=== PATIENT | female | born 2000 | race Caucasian/White ===

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

== ENCOUNTER 2022-01-28 10:31 | Emergency (ER) | payer OTHER, SELFPAY ==
--- NOTE | ~2022-01-28 | XR_ITS ---
EXAMINATION: XR foot LT min 3V DATE: 01/28/2022 11:31 INDICATION: Possible foreign body TECHNIQUE: Dorsoplantar, lateral, and 2 oblique views of the left foot were obtained. COMPARISON: None. FINDINGS: Bone alignment is normal. There is no fracture. The joint spaces are normal. No definite ra diopaque foreign body is identified. IMPRESSION: 1. No acute osseous abnormality. No definite radiopaque foreign body identified. Reviewed, dictated and finalized at location B. IMPRESSION: 1. No acute osseous abnormality. No definite radiopaque foreign body identified .
[2022-01-28 10:37] VITALS: BP 149/100; PULSE 97; RESP 14; TEMP 36.1; O2SAT 99
--- NOTE | 2022-01-28 11:55 | ED.SKABFB ---
HPI - Skin/Abscess/Foreign Bdy General Chief complaint: Skin/Abscess/Foreign Body <Saadia Quintero PA-C - Last Filed: 01/28/22 11:59> Stated complaint: left foot FB <Saadia Quintero PA-C - Last Filed: 01/28/22 11:59> Time Seen by Provider: 01/28/22 11:09 <JOSE JUAN Fitzgerald Last Filed: 01/28/22 11:59> History of Present Illness HPI narrative: Patient is a 21-year-old female here for evaluation of a foreign body to the plantar surface of her left foot. 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 She states that the piece of glass remained in the foot and she was told to come to the emergency department to have this removed as the staff at the restaurant did not feel comfortable removing it. At time of my evaluation, patient has her shoe off, with a piece of glass sticking up in the sole of the shoe but no foreign body in foot. Her last tetanus shot was 3 months ago. She has been walking on the foot without issue. <JOSE JUAN Fiztgerald Last Filed: 01/28/22 11:59> Related Data Allergies/Adverse reactions: Allergies Allergy/AdvReac Type Severity Reaction Status Date / Time No Known Allergies Allergy Verified 11/20/19 21:41 <JOSE JUAN Fitzgerald Last Filed: 01/28/22 11:59> Review of Systems Review of Systems: Gen.: Denies fevers or chills Eyes: Denies eye pain or visual change ENT: Denies congestion Respiratory: Denies shortness of breath or cough CV: Denies chest pain or palpitations GI: Denies abdominal pain nausea, emesis or diarrhea denies burning, urgency, frequency or hematuria Musculoskeletal: Denies back pain or muscle pain Neuro: Denies numbness, tingling, weakness or focal weakness Skin: Reports left foot puncture wound Except as documented, all other systems reviewed and negative <JOSE JUAN Fitzgerald Last Filed: 01/28/22 11:59> [facility] Past Medical History Medical History: Medical History (Updated 01/29/22 @ 00:00 by Background Daceasar) Migraine <Saadia Quintero PA-C - Last Filed: 01/28/22 11:59> Exam Narrative: Gen: Alert, oriented, no acute distress Eyes: EOMI, no icterus Pulm: Respirations even and unlabored, symmetric thorax expansion, no audible stridor or visible cyanosis CV: 2+ DP and PT pulses bilaterally. GI: No distension, no voluntary/involuntary guarding Neuro: AOx4, moves all extremities without apparent difficulty or weakness, follows commands MSK: Full range of motion in bilateral feet and toes. Skin: Patient has a pinpoint puncture wound to the plantar aspect of the left foot overlying the third metatarsal head; no active bleeding Psych: Normal mood/affect, insight/judgement good, adequate fund of knowledge, recent/remote memory intact <Saadia Quintero PA-C - Last Filed: 01/28/22 11:59> Course OFFICE SUPPORT CLERK/PA Physician Supervision For this patient encounter, I reviewed the OFFICE SUPPORT CLERK or PA documentation, treatment plan, and medical decision making <August Singh MD - Last Filed: 01/29/22 07:16> Vital Signs Vital signs: Vital Signs Temperature 97.0 F L 01/28/22 10:37 Pulse Rate 97 01/28/22 10:37 Respiratory Rate 14 01/28/22 10:37 Blood Pressure 149/100 H 01/28/22 10:37 Pulse Oximetry 99 01/28/22 10:37 Oxygen Delivery Room Air 01/28/22 10:37 Temperature 97.0 F L 01/28/22 10:37 Pulse Rate 97 01/28/22 10:37 Respiratory Rate 14 01/28/22 10:37 Blood Pressure 149/100 H 01/28/22 10:37 Pulse Oximetry 99 01/28/22 10:37 Oxygen Delivery Room Air 01/28/22 10:37 <Saadia Quintero PA-C - Last Filed: 01/28/22 11:59> Vital Signs Temperature 97.0 F L 01/28/22 10:37 Pulse Rate 97 01/28/22 10:37 Respiratory Rate 14 01/28/22 10:37 Blood Pressure 149/100 H 01/28/22 10:37 Pulse Oximetry 99 01/28/22 10:37 Oxygen Delivery Room Air 01/28/22 10:37 Temperature 97.0 F L 01/28/22
== END 2022-01-28 12:02 | disposition home or self-care (01) ==
PROVIDERS: Emergency Provider Emergency Medicine
DX: S91.332A Puncture wound without foreign body, left foot, initial encounter (principal); W25.XXXA Contact with sharp glass, initial encounter; Y92.511 Restaurant or cafe as the place of occurrence of the external cause; Y99.0 Civilian activity done for income or pay
CPT/HCPCS: 73630; 99283

== ENCOUNTER 2022-09-08 12:13 | Emergency (ER) | payer OTHER, SELFPAY ==
--- NOTE | ~2022-09-08 | XR_ITS ---
Clinical Indication: Chest pain PA and lateral views of the chest: Comparison: None Findings: The lungs are clear, without evidence of focal consolidation or pleural effusion. Cardiome diastinal silhouette is within normal limits. Bones and soft tissues are unremarkable. Impression: Normal chest. Reviewed, dictated and finalized at location . Impression: Normal chest.
[2022-09-08 12:21] VITALS: BP 162/99; PULSE 99; RESP 16; TEMP 36.8; O2SAT 100
--- NOTE | 2022-09-08 12:33 | PC.NURSE ---
States she has just started taking lisinopril about a month prior.
--- NOTE | 2022-09-08 12:47 | ED.GENADULT ---
HPI - General Adult General Chief complaint: Recheck/Abnormal Lab/Rx Stated complaint: high bp Time Seen by Provider: 09/08/22 12:16 History of Present Illness HPI narrative: Patient is 22 years old white female drove herself to the emergency room complaining of right jaw pain started 2 days ago. Worse with opening mouth, better if she does not open her mouth. She denies any fever, chills, nausea, vomiting, chest pain, shortness of breath, back pain, neck pain, trouble swallowing or breathing. She denies having similar symptoms. History of hypertension, new diagnosis 3 months ago, currently on lisinopril. Related Data Allergies Allergy/AdvReac Type Severity Reaction Status Date / Time No Known Allergies Allergy Verified 11/20/19 21:41 Review of Systems Review of Systems: All systems reviewed & are unremarkable except as noted in HPI and below PMFSH Past Medical History Medical History (Updated 09/08/22 @ 14:32 by Clau Marquez MD) Migraine Exam Narrative: General appearance: Well-developed, well-nourished Skin: Normal color Head: Normocephalic, nontraumatic Eyes: Clear conjunctiva ENT: Oropharynx normal, ears normal, nose normal, mild to moderate tenderness right temporomandibular joint with pressure externally, worse with opening and moving her lower jaw to either direction. No bruises, no swelling, no erythema, oral exam showed no dental abnormalities, no swelling or abscess formation. Neck: Supple, nontender Chest and respiratory: Airway patent, no respiratory distress, no accessory muscle use Heart: Regular rate/rhythm Vascular: Normal peripheral pulses, normal capillary refill. Musculoskeletal: Normal range of motion, nontender back Neurologic: Alert and oriented ?3, RESEARCH LEADER is normal as tested, no gross motor deficit Course Course Emergency Course: Improving Reevaluation(s) Reevaluation #1: Currently patient feeling much better after having ibuprofen and Tylenol orally. Date: 09/08/22 Time: 14:12 Vital Signs Vital signs: Vital Signs Temperature 36.8 C 09/08/22 12:21 Pulse Rate 99 09/08/22 12:21 Respiratory Rate 16 09/08/22 12:21 Blood Pressure 162/99 H 09/08/22 12:21 Pulse Oximetry 100 09/08/22 12:21 Oxygen Delivery Room Air 09/08/22 12:21 Temperature 36.8 C 09/08/22 12:21 Pulse Rate 99 09/08/22 12:21 Respiratory Rate 16 09/08/22 12:21 Blood Pressure 162/99 H 09/08/22 12:21 Pulse Oximetry 100 09/08/22 12:21 Oxygen Delivery Room Air 09/08/22 12:21 Medical Decision Making MDM Narrative Medical decision making narrative: Patient presents with right jaw pain, physical examination showed diffuse tenderness at the right temporomandibular joint area, TMJ is my concern. Worse with opening her mouth and moving the jaw to either direction. Patient received Tylenol and ibuprofen in the ER with good improvement. EKG on arrival showed normal sinus rhythm at 88 bpm, no acute abnormality. Chest x-ray showed normal chest. I plan to discharge patient on naproxen and follow-up with her family physician in 3 to 5 days. Differential Diagnosis Differential Diagnosis: TMJ, dental infection. Vital Signs Vital Signs: Vital Signs Temperature 36.8 C 09/08/22 12:21 Pulse Rate 99 09/08/22 12:21 Respiratory Rate 16 09/08/22 12:21 Blood Pressure 162/99 H 09/08/22 12:21 Pulse Oximetry 100 09/08/22 12:21 Oxygen Delivery Room Air 09/08/22 12:21 Temperature 36.8 C 09/08/22 12:21 Pulse Rate 99 09/08/22 12:21 Respiratory Rate 16 09/08/22 12:21 Blood Pressure 162/99 H 09/08/22 12:21 Pulse Oximetry 100 09/08/22 12:21 Oxygen Delivery Room Air 09/08/22 12:21
[2022-09-08] MEDS: ACETAMINOPHEN 500 MG TABLET 1000 MG PO (12:55)
--- NOTE | 2022-09-08 13:42 | ECG_ITS ---
Measurements Intervals [place] Rate: 88 P: 38 LA: 157 QRS: 41 QRSD: 80 T: 12 QT: 352 QTc: 426 Interpretive Statements SINUS RHYTHM NORMAL ELECTROCARDIOGRAM NO PREVIOUS ECG AVAILABLE FOR COMPARISON Electronically Signed On 09-09-2022 6:55:43 CDT by Jose Gibson M.D.
[2022-09-08 14:27] LABS: Basophils Percent Auto 0.5 % (0.2-1.2); Eosinophils Absolute Auto 0.1 K/mm3 (0-0.3); Eosinophils Percent Auto 1.4 % (0-4.4); Hematocrit 41.9 % (37.0-47.0); Hemoglobin 14.3 g/dL (12.0-15.0); Immature Granulocyte Absolute 0.01 K/mm3 (0.00-0.031); Immature Granulocyte Percent A 0.1 % (0-0.5); Lymphocytes Absolute Auto 2.29 K/mm3 (0.9-3.2); Lymphocytes Percent Auto 28.7 % (18.3-44.2); Mean Corpuscular HGB Conc 34.1 g/dl (32-36); Mean Corpuscular Hemoglobin 28.7 pg (26-34); Mean Corpuscular Volume 84.1 fl (80-100); Mean Platelet Volume 10.1 fl (7.4-10.4); Monocytes Absolute Auto 0.5 K/mm3 (0.1-0.6); Monocytes Percent Auto 6.8 % (2.6-8.5); Neutrophils Percent Auto 62.5 % (45.5-73.1); Platelet Count Result 293 k/mm3 (150-375); Red Blood Count 4.98 M/mm3 (4.2-5.4); Red Cell Distribution Width 12.6 % (11.5-14.5)
[2022-09-08 14:34] LABS: Anion Gap 8 mmol/L (8-16); Blood Urea Nitrogen 14 mg/dL (7-17); CRP 0.5 mg/dL (<1.0); Calcium 9.2 mg/dL (8.4-10.2); Carbon Dioxide 26 mmol/L (22-30); Chloride 104 mmol/L (98-107); Estimated CRCL calculation 125 ml/min; Estimated Glomerular Filt Rate > 60; Glucose 87 mg/dL (65-110); Sodium 138 mmol/L (137-145)
[2022-09-08 14:43] LABS: Troponin I < 0.012 ng/mL (0.000-0.034)
[2022-09-08 14:53] VITALS: BP 152/105; PULSE 77; RESP 20; O2SAT 100
[2022-09-08 14:58] LABS: Erythrocyte Sedimentation Rate 9 mm/hr (0-20)
== END 2022-09-08 15:08 | disposition home or self-care (01) ==
PROVIDERS: Emergency Provider Emergency Medicine
DX: M26.601 Right temporomandibular joint disorder, unspecified (principal)
CPT/HCPCS: 36415; 71046; 80048; 84484; 85025; 85652; 86140; 93005; 99284; A9270

== ENCOUNTER 2023-02-11 19:20 | Emergency (ER) | payer BC, SELFPAY ==
[2023-02-11 19:21] VITALS: BP 162/130; PULSE 98; RESP 20; TEMP 37.1; O2SAT 98
[2023-02-11] MEDS: KETOROLAC (*BKC) 60 MG/2 ML VIAL IM (20:01)
[2023-02-11] MEDS: PROMETHAZINE HCL 25 MG TABLET 50 MG PO (20:01)
[2023-02-11] MEDS: hydroCHLOROthiazide 25 MG TABLET PO (20:01)
--- NOTE | 2023-02-11 20:16 | ED.GENADULT ---
HPI - General Adult General Chief complaint: Headache Stated complaint: Migraine History of Present Illness HPI narrative: 22yo woman with hypertension and h/o migraines presents with severe headache with peripheral blurry vision, intermittent spots in her field of vision, no numbness or weakness. Onset yesterday morning. Symptoms consistent with prior migraine. BP high. Is seeing primary care about this. Working on weight loss, considering daily medication. Related Data Allergies Allergy/AdvReac Type Severity Reaction Status Date / Time No Known Allergies Allergy Verified 11/20/19 21:41 Review of Systems Review of Systems: All systems reviewed & are unremarkable except as noted in HPI and below Constitutional: Constitutional: Denies chills and Denies fever(s) ENT: Denies dysphagia Cardiovascular: Cardiovascular: Denies chest pain Respiratory: Respiratory: Denies dyspnea Gastrointestinal: Gastrointestinal: Denies abdominal pain Neurologic: Denies numbness and Denies weakness PMFSH Past Medical History Medical History (Updated 02/11/23 @ 20:20 by Paulino Balbuena MD) Migraine Exam Const: General: healthy appearing and no acute distress Nutritional Appearance: well nourished Eyes: Conjunctivae: conjunctivae normal Resp: Effort & Inspection: normal respiratory effort and not labored Cardio: Rate: regular rate GI: Inspection: non-distended Skin: General skin exam: normal color, no jaundice and no pallor Neuro: General: patient oriented x3 and moves all extremities Gait exam (Neuro): Normal gait present Extrem: General: no clubbing, cyanosis or edema Course Vital Signs Vital signs: Vital Signs Temperature 37.1 C 02/11/23 19:21 Pulse Rate 98 02/11/23 19:21 Respiratory Rate 02/11/23 19:21 Blood Pressure 162/130 H 02/11/23 19:21 Pulse Oximetry 98 02/11/23 19:21 Oxygen Delivery Room Air 02/11/23 19:21 Temperature 37.1 C 02/11/23 19:21 Pulse Rate 98 02/11/23 19:21 Respiratory Rate 02/11/23 19:21 Blood Pressure 162/130 H 02/11/23 19:21 Pulse Oximetry 98 02/11/23 19:21 Oxygen Delivery Room Air 02/11/23 19:21 Medical Decision Making MDM Narrative Medical decision making narrative: acute headache DDx migraine, tension headache, idiopathic intracranial hypertension. No evidence of CVA or hemorrhage or mass Vital Signs Vital Signs: Vital Signs Temperature 37.1 C 02/11/23 19:21 Pulse Rate 98 02/11/23 19:21 Respiratory Rate 02/11/23 19:21 Blood Pressure 162/130 H 02/11/23 19:21 Pulse Oximetry 98 02/11/23 19:21 Oxygen Delivery Room Air 02/11/23 19:21 Temperature 37.1 C 02/11/23 19:21 Pulse Rate 98 02/11/23 19:21 Respiratory Rate 02/11/23 19:21 Blood Pressure 162/130 H 02/11/23 19:21 Pulse Oximetry 98 02/11/23 19:21 Oxygen Delivery Room Air 02/11/23 19:21 Discharge Plan Discharge Clinical Impression: Acute onset aura migraine Qualifiers: Status migrainosus presence: with status migrainosus Intractability: not intractable Qualified Code(s): G43.101 - Migraine with aura, not intractable, with status migrainosus Patient Disposition: Home, Self-Care Condition: Improved Instructions: Migraine Headache (ED) Additional Instructions: For headache pain in the future, take the prescribed medication Fioricet in addition to your other headache meds. Taking them earlier on in the headache episode gives a higher chance of success. To help prevent future headaches, it may be helpful to lower your blood pressure. Talk to your doctor about starting a once daily medication to lower the blood pressure. Also increase your walking to 2 miles per day, which will help reduce body weight and lower blood pressure. It would also be helpful to decrease your intake of very calorie dense foods, such as fried foods, fast food, candy, soda, or other liquid calories. Any decrease in weigh
[2023-02-11 20:40] VITALS: BP 161/111; PULSE 98; RESP 18; TEMP 37.1; O2SAT 98
== END 2023-02-11 20:42 | disposition home or self-care (01) ==
PROVIDERS: Emergency Provider Emergency Medicine
DX: G43.101 Migraine with aura, not intractable, with status migrainosus (principal); I10 Essential (primary) hypertension
CPT/HCPCS: 96372; 99284; A9270; J1100; J1885

== ENCOUNTER 2023-09-09 08:29 | Emergency (ER) | payer OTHER, BC, SELFPAY ==
[2023-09-09 08:35] VITALS: BP 152/99; PULSE 96; RESP 18; TEMP 36.1; O2SAT 99
--- NOTE | 2023-09-09 08:41 | ED.BURNSMOKE ---
HPI - Burn/Smoke Inhalation General Chief complaint: Burn/Smoke Inhalation Stated complaint: burn to right hand Time Seen by Provider: 09/09/23 08:35 History of Present Illness HPI Narrative: 23-year-old female presenting to the emergency department for evaluation of a burn to her thenar eminence. Patient was cooking with grease at work when the grease splashed up and burned her hand. Patient has no montano to some fingers. Patient's tetanus is up-to-date. Related Data Allergies Allergy/AdvReac Type Severity Reaction Status Date / Time No Known Allergies Allergy Verified 09/09/23 08:39 Review of Systems Review of Systems: All systems reviewed & are unremarkable except as noted in HPI and below PMFSH Past Medical History Medical History (Updated 09/09/23 @ 08:45 by August Singh MD) Migraine Exam Narrative: APPEARANCE: Well appearing, no pain, no distress, well-nourished. HEAD: normocephalic, atraumatic. EYES: PERRLA/EOMI, conjunctivae clear. NOSE: Normal no drainage RESPIRATORY: Airway patent, respirations nonlabored. Clear to auscultation bilaterally, no rales, rhonchi, wheezing. CARDIOVASCULAR: Regular rate and rhythm without murmurs rubs or gallops. ABDOMINAL: Soft, nontender, nondistended, normal bowel sounds MUSCULOSKELETAL: Moves all extremities. Strength/ROM intact, No edema, No calf tenderness. NEURO: Alert. Cranial nerves II through XII intact. Good gait. Good coordination SKIN: 1st and second-degree burn located the thenar eminence of the right hand. Intact to sensation and no montano that are circumferential of thumb or fingers Course Vital Signs Vital signs: Vital Signs Temperature 97.0 F L 09/09/23 08:35 Pulse Rate 96 09/09/23 08:35 Respiratory Rate 18 09/09/23 08:35 Blood Pressure 152/99 H 09/09/23 08:35 Pulse Oximetry 99 09/09/23 08:35 Oxygen Delivery Room Air 09/09/23 08:35 Temperature 97.0 F L 09/09/23 08:35 Pulse Rate 96 09/09/23 08:35 Respiratory Rate 18 09/09/23 08:35 Blood Pressure 152/99 H 09/09/23 08:35 Pulse Oximetry 99 09/09/23 08:35 Oxygen Delivery Room Air 09/09/23 08:35 MDM - Burn/Smoke Inhalation MDM Narrative Medical decision making narrative: 23-year-old female presents emergency department for evaluation for burn to the right hand. Patient's tetanus is up-to-date. Antibiotic ointment and dressing was applied. Patient was educated on wound care. Patient was comfortable with plan for discharge and close follow-up. Discharge Plan Discharge Clinical Impression: Burn of skin due to hot oil Patient Disposition: Home, Self-Care Condition: Stable Instructions: Antibiotic Form, Second-Degree Burn (ED) Additional Instructions: Wound care as directed. Have close follow-up with your primary care physician. Prescriptions: New hydrocodone-acetaminophen 5-325 mg tablet 1 tablet PO Q8H PRN (Reason: pain) Qty: 10 0RF Follow-up/Referrals: PHYSICIAN NOT ON STAFF,NONSTAFF [Non-Staff] - Stand Alone Forms: Work/School Release IP
== END 2023-09-09 09:15 | disposition home or self-care (01) ==
LOC: ANHED 08:48
PROVIDERS: Emergency Provider Emergency Medicine
DX: T23.251A Burn of second degree of right palm, initial encounter (principal); T31.0 Burns involving less than 10% of body surface; X10.2XXA Contact with fats and cooking oils, initial encounter; Y93.G3 Activity, cooking and baking
CPT/HCPCS: 16000; 99283

== ENCOUNTER 2024-05-30 13:47 | Emergency (ER) | payer SELFPAY ==
[2024-05-30] VITALS (12 sets, daily range): BP systolic 140–169; BP diastolic 90–110; PULSE 92–108; RESP 18; TEMP 36.3; O2SAT 94–100
--- NOTE | ~2024-05-30 | CT_ITS ---
CLINICAL INDICATION: Epigastric pain COMPARISON: None. TECHNIQUE: Multiple contiguous axial images of the abdomen and pelvis were performed following the ad ministration of with 100 mL Omnipaque-350 intravenous contrast The dose-length product (DLP) was 1234.15 mGy-cm. Automated exposure control and iterative reconstruction technique were employed. FINDINGS/OBSERVATIONS: Visualized lower thorax: The bilateral lung bases are clear. The heart is of normal size, without pericardial effusion. Small hiatal hernia is present. Liver: The liver enhances homogeneously and is not enlarged measuring 17 cm in longitudinal dimension . Gallbladder and biliary system: The gallbladder is only minimally distended, and otherwise unremarkable. Pancreas: The pancreas enhances homogeneously without ductal dilatation. Spleen: The spleen enhances homogeneously and is enlarged measuring 13 cm in longitudinal dimension. Kidneys: The bilateral kidneys enhance symmetrically without hydronephrosis or renal calculi. Adrenal glands: Unremarkable. Gastrointestinal tract: Infiltration of the fat surrounding the small hiatal hernia is identified, which extends into the ret rogastric position, surrounded by multiple enlarged lymph nodes for which proximal gastroenteritis ve rsus distal esophagitis is suspected. The paraesophageal and retrogastric lymph nodes measure anywhere between 9.3 mm in short axis dimensi on up to 12mm in short axis dimension. Fecal stasis within the rectum. Appendix: The appendix is not definitively visualized. However, no pericecal inflammatory change is identified suggest the presence of acute appendicitis. Vasculature: Unremarkable. No aneurysmal dilatation, congenital abnormality or significant stenosis. Lymph nodes: As detailed above. Pelvic structures: The bladder is decompressed, and otherwise unremarkable. Uterus is anteverted and anteflexed. Body wall and musculoskeletal: Small fat-containing umbilical hernia. No significant degenerative disease within the lower thoracic or lumbosacral spine. IMPRESSION: Findings (as detailed above) for which proximal gastroenteritis versus distal esophagitis is suspecte d. Splenic enlargement. Reviewed, dictated and finalized at location A. ROOM SUPERVISOR IMPRESSION: Findings (as detailed above) for which proximal gastroenteritis versus distal e sophagitis is suspected. Splenic enlargement.
--- NOTE | ~2024-05-30 | XR_ITS ---
EXAMINATION: XR chest 2V 05/30/2024 14:22 INDICATION: Epigastric pain for 3 days PROCEDURE: 2 view chest COMPARISON: 09/08/2022 FINDINGS: The lungs are clear. The cardiomediastinal silhouette is within normal limits. There are no pleural effusions. There is no pneumothorax suspected. IMPRESSION: 1: NO ACUTE CARDIOPULMONARY DISEASE. Reviewed, dictated and finalized at location B. GATE KEEPER
--- NOTE | 2024-05-30 13:54 | ECG_ITS ---
Test Date: 2024-05-30 14:07:26 Measurements Intervals [place] Rate: 102 P: 43 [place]: 149 QRS: 67 QRSD: 88 T: 33 QT: 328 QTc: 429 Interpretive Statements SINUS TACHYCARDIA NONSPECIFIC T-WAVE ABNORMALITY No previous ECG available for comparison Electronically Signed On 05-31-2024 17:43:54 OUTSOLE ROUNDER by Osvaldo Correa M.D.
--- NOTE | 2024-05-30 14:30 | ED.ABDPAIN ---
HPI - Abdominal Pain General Chief Complaint: Abdominal Pain Stated Complaint: chest pain Time Seen by Provider: 05/30/24 13:54 Source: patient Mode of arrival: ambulatory Limitations: no limitations History of Present Illness HPI narrative: 23 years old white female came to the ED with her boyfriend by private car complaining of epigastric, retrosternal heaviness like elephant sitting on chest started 3 days ago, intermittent. It radiating to her back. Worse with breathing, History of hypertension used to be on losartan, unknown dose, quit 3 months ago because does Insurance issues. History of anxiety and depression. Patient denies any fever, chills, nausea, vomiting, diarrhea, constipation. Patient does not smoke or drink or use drugs. . No history of abdominal surgery Related Data Allergies Allergy/AdvReac Type Severity Reaction Status Date / Time No Known Allergies Allergy Verified 05/30/24 13:57 Review of Systems Review of Systems: All systems reviewed & are unremarkable except as noted in HPI and below PMFSH Past Medical History Medical History (Updated 05/30/24 @ 16:46 by Clau Marquez MD) Migraine Exam Narrative: General appearance: Well-developed, well-nourished Skin: Normal color Head: Normocephalic, nontraumatic Eyes: Clear conjunctiva ENT: Oropharynx normal, ears normal, nose normal Neck: Supple, nontender Chest and respiratory: Airway patent, no respiratory distress, no accessory muscle use Heart: Regular rate/rhythm Abdomen: Soft, moderate epigastric tenderness, no organomegaly, quiet bowel sounds Vascular: Normal peripheral pulses, normal capillary refill. Musculoskeletal: Normal range of motion, nontender back Neurologic: Alert and oriented ?3, [employer] WORKER is normal as tested, no gross motor deficit Course Vital Signs Vital signs: Vital Signs Temperature 36.3 C L 05/30/24 13:47 Pulse Rate 108 H 05/30/24 13:47 Respiratory Rate 18 05/30/24 13:47 Blood Pressure 155/109 H 05/30/24 13:47 Pulse Oximetry 98 05/30/24 13:47 Oxygen Delivery Room Air 05/30/24 13:47 Temperature 36.3 C L 05/30/24 13:47 Pulse Rate 108 H 05/30/24 13:47 Respiratory Rate 18 05/30/24 13:47 Blood Pressure 157/105 H 05/30/24 15:16 Pulse Oximetry 94 05/30/24 15:16 Oxygen Delivery Room Air 05/30/24 13:47 MDM - Abdominal Pain MDM Narrative Medical decision making narrative: patient came with epigastric pain and retrosternal pain, stop taking her blood pressure medication over 3 months because of insurance issues Vital signs showing blood pressure 155/109, heart rate 108 otherwise within normal limit Patient is 118 kilos Physical examination consistent with epigastric tenderness at the sternal tenderness without rash or swelling Differential diagnosis include pancreatitis, gastritis, esophagitis, less likely coronary artery disease, pulmonary embolism, stress like symptoms Blood workup today includes CBC, CMP, troponin, lipase showedNo significant abnormalities Urinalysis showed evidence of urinary tract infection Chest x-ray showed no acute abnormalities CT abdomen and pelvis with IV contrast showed finding consistent was esophagitis, gastritis. Patient will be discharged on Protonix, Macrobid and losartan. The pt was discharged to home.the pt,s condition upon discharge was fair,education was provided to the pt in reference to the final impression,discharge study results,treatment,prognosis and need for follow up . Lab Data 05/30/24 14:54 05/30/24 14:54 Labs: Lab Results 05/30/24 05/30/24 Range/Units 14:54 15:35 WBC 9.7 (4.8-10.8) K/mm3 RBC 5.21 (4.20-5.40) M/mm3 Hgb 14.1 (12.0-15.0) g/dL Hct 41.2 (35.0-49.0) % MCV 79.1 (78.0-102.0) fL MCH 27.1 (27.0-31.0) pg MCHC 34.2 (32-36) g/dL RDW 12.3 (11.6-14.4) % Plt Count 285 (150-420) K/mm3 MPV 8.9 L (9.2-11.8) fl Immature Gran % (Auto) 0.3 H (0.0-0.0) % Neut % (Auto) 76.2 H (50.0-70.0) % Lymph % (Auto) 15.7 L (18.0-42.0) % [place] % (Auto) 7.1 (2.0-11.0) % Eos % (Auto) 0.4 L (1.0-6.0) % Baso % (Auto) 0.3 (0.0-1.0) % Lymph # (Auto) 1.52 (1.10-4.50) K/mm3 [place] # (Auto) 0.69 (0.10-0.90) K/mm3 Eos # (Auto) 0.04 (0.02-0.50) K/mm3 Baso # (Auto) 0.03 (0.00-0.10) K/mm3 Abs Immat Gran (auto) 0.03 H (0.00-0.00) K/mm3 Absolute Neuts (auto) 7.37 H (1.70-7.20) K/mm3 Absolute Nucleated RBC 0.00 (0.00-0.00) K/mm3 Nucleated RBC % 0.0 (0-0.0) % PT 10.5 (9.50-12.1) Seconds INR 0.9 APTT 28.5 (23.9-30.70) Sec D-Dimer 0.42 (0.19-0.50) mg/L Sodium 139 (136-145) mmol/L Potassium 3.7 (3.5-5.1) mmol/L Chloride 102 (98-108) mmol/L Carbon Dioxide 27 (21-32) mmol/L Anion Gap 10 (4-12) mmol/L BUN 10 (7-18) mg/dL Creatinine 0.84 (0.55-1.02) mg/dL Estim Creat Clear Calc 120 ml/min Estimated GFR > 60 (59 - ) Glucose 107 H (70-99) mg/dL Calculated Osmolality 287 (285-295) mOsm/kg Calcium 9.0 (8.5-10.1) mg/dL Total Bilirubin 1.1 H (0.00-1.00) mg/dL AST 14 L (15-37) U/L ALT 24 (14-59) U/L Alkaline Phosphatase 79 (46-116) U/L Troponin I 8.3 (0.00-60.4) ng/L Total Protein 7.2 (6.4-8.2) g/dL Albumin 3.7 (3.4-5.0) g/dL Lipase 26 (16-77) U/L Urine Color Light yellow (Yellow) Urine Appearance Sl cloudy A (Clear) Urine pH 6.0 (5.0-8.0) Ur Specific [place] 1.025 H (1.010-1.020) Urine Protein Negative (Negative) Urine Glucose (UA) Negative (Negative) Urine Ketones Trace H (Negative) Ur Blood (Man) Trace-intact H (Negative) Urine Nitrate Positive H (Negative) Urine Bilirubin Negative (Negative) Urine Urobilinogen 1.0 (0.2-1.0) mg/dL Leukocyte Esterase Rfl Negative (Negative) MARIO/UL Urine RBC None seen (0-2) /hpf Urine WBC 0-3 (0-3) /hpf Ur Squamous Epith Cells Moderate H (Few) /hpf Urine Bacteria 3+ H (None) /hpf Urine Test Negative Imaging Data Radiologist's impression: ITS Impressions Chest X-Ray 05/30/24 14:25 IMPRESSION: 1: NO ACUTE CARDIOPULMONARY DISEASE. Abdomen/Pelvis CT 05/30/24 16:17 IMPRESSION: Findings (as detailed above) for which proximal gastroenteritis versus distal esophagitis is suspected. Splenic enlargement. Discharge Plan Discharge Clinical Impression: Epigastric abdominal pain, Hypertension, Urinary tract infection Patient Disposition: Home, Self-Care Condition: Stable Instructions: Antibiotic Form, Urinary Tract Infection in Women (DC), Hypertension (ED), Epigastric Pain (ED) Additional Instructions: Return if symptoms are worsening , call your family physician for appointment, take Tylenol ibuprofen as as needed for aches and pain, continue home medications. Patient Language: Yoruba Prescriptions: New nitrofurantoin monohyd/m-cryst [Macrobid] 100 mg capsule 100 mg PO Q12H 5 Days Qty: 10 0RF Rx Instructions: must administer with a meal/food losartan 50 mg tablet 50 mg PO DAILY Qty: 30 0RF pantoprazole [Protonix] 40 mg tablet,delayed release (DR/EC) 40 mg PO QAM 30 Days Qty: 30 0RF Follow-up/Referrals: UNKNOWN,DOCTOR [Primary Care Provider] -
[2024-05-30] MEDS: LOSARTAN POTASSIUM 50 MG TABLET PO (14:37)
[2024-05-30] MEDS: fentaNYL CITRATE INJ (*CRX) 100 MCG/2 ML VIAL 50 MCG IV PUSH (14:46)
[2024-05-30] MEDS: ONDANSETRON INJ 4 MG/2 ML VIAL IV PUSH (14:46)
[2024-05-30 14:59] LABS: Basophils Absolute Auto 0.03 K/mm3 (0.00-0.10); Basophils Percent Auto 0.3 % (0.0-1.0); Eosinophils Absolute Auto 0.04 K/mm3 (0.02-0.50); Eosinophils Percent Auto 0.4 % (1.0-6.0); Hematocrit 41.2 % (35.0-49.0); Hemoglobin 14.1 g/dL (12.0-15.0); Immature Granulocyte Absolute 0.03 K/mm3 (0.00-0.00); Immature Granulocyte Percent A 0.3 % (0.0-0.0); Lymphocytes Absolute Auto 1.52 K/mm3 (1.10-4.50); Lymphocytes Percent Auto 15.7 % (18.0-42.0); Mean Corpuscular HGB Conc 34.2 g/dL (32-36); Mean Corpuscular Hemoglobin 27.1 pg (27.0-31.0); Mean Corpuscular Volume 79.1 fL (78.0-102.0); Mean Platelet Volume 8.9 fl (9.2-11.8); Monocytes Absolute Auto 0.69 K/mm3 (0.10-0.90); Monocytes Percent Auto 7.1 % (2.0-11.0); Neutrophils Absolute Auto 7.37 K/mm3 (1.70-7.20); Neutrophils Percent Auto 76.2 % (50.0-70.0); Platelet Count Result 285 K/mm3 (150-420); Red Blood Count 5.21 M/mm3 (4.20-5.40); Red Cell Distribution Width 12.3 % (11.6-14.4); White Blood Count 9.7 K/mm3 (4.8-10.8)
[2024-05-30 15:17] LABS: D Dimer 0.42 mg/L (0.19-0.50); INR 0.9; Partial Thromboplastin Time 28.5 Sec (23.9-30.70); Prothrombin Time 10.5 Seconds (9.50-12.1)
[2024-05-30 15:18] LABS: Alanine Aminotransferase 24 U/L (14-59); Albumin Level 3.7 g/dL (3.4-5.0); Alkaline Phosphatase 79 U/L (46-116); Anion Gap 10 mmol/L (4-12); Aspartate Amino Transferase 14 U/L (15-37); Bilirubin,Total 1.1 mg/dL (0.00-1.00); Blood Urea Nitrogen 10 mg/dL (7-18); Carbon Dioxide 27 mmol/L (21-32); Chloride 102 mmol/L (98-108); Estimated CRCL calculation 120 ml/min; Estimated Glomerular Filt Rate > 60; Glucose 107 mg/dL (70-99); Lipase 26 U/L (16-77); Osmolality Calculated 287 mOsm/kg (285-295); Potassium 3.7 mmol/L (3.5-5.1); Sodium 139 mmol/L (136-145); Total Protein 7.2 g/dL (6.4-8.2); Troponin I 8.3 ng/L (0.00-60.4)
--- NOTE | 2024-05-30 15:28 | PC.NURSE ---
PT REPORTS PAIN HAS IMPROVED TO 4/10 AT THIS TIME. PT DID HAVE EMESIS EPISODE POST ADMINISTRATION OF FENTANYL, SHE REPORTS SHE IS FEELING MUCH BETTER AT THIS TIME. SIG OTHER IS AT BEDSIDE. WILL CONTINUE TO MONITOR.
[2024-05-30 15:42] LABS: Add Urine Microscopic? YES; Appearance Urine Sl Cloudy (Clear); Bilirubin Urine Negative (Negative); Blood Urine Trace-intact (Negative); Color Urine Light Yellow (Yellow); Glucose Urine UA Negative (Negative); Ketones Urine Trace (Negative); Leukocyte Esterase Ur Negative LEU/UL (Negative); Nitrate Urine Positive (Negative); Protein Urine Negative (Negative); Specific Grav Ur 1.025 (1.010-1.020)
[2024-05-30 15:47] LABS: Bacteria Urine 3+ /hpf; RBC Urine None seen /hpf (0-2); Squamous Epithelial Cell Urine Moderate /hpf (Few); WBC Urine 0-3 /hpf (0-3)
[2024-05-30 15:54] LABS: Pregnancy On Board Control Positive; Urine Pregnancy Test Negative
--- NOTE | 2024-05-30 17:07 | PC.NURSE ---
PT IS AWAITING RESULTS AT THIS TIME. SIG OTHER AT BEDSIDE. PT REPORTS PAIN HAS IMPROVED. NAD NOTED. WILL CONTINUE TO MONITOR.
--- NOTE | 2024-06-02 14:53 | PC.NURSE ---
PRELIMINARY URINE CULTURE RESULTS: GREATER THAN 100,000 CFU/ML OF ESCHERICHIA COLI. TO AWAIT C&S PER DR BANKS
--- NOTE | 2024-06-03 13:04 | PC.NURSE ---
FINAL URINE CULTURE REPORT; ESCHERICHIA COLI; PATIENT DISCHARGED ON MACROBID. CULTURE SUSCEPTIBLE. NO FURTHER ACTION OR CHANGE IN TREATMENT NEEDED PER DR CLEMONS
--- OUTSIDE RECORDS SUMMARY | 2024-06-05 23:57 | XMS_ITS | Continuity of Care Document ---
Author Organization [facility] ices Address [address] [place] [address] Phone Care Team Providers Care Custodial Officer Name Role Phone Tony Herrmann MD Unavailable Unavailable Allergies, Adverse Reactions, Alerts Substance Reaction Status Criticality No Known Allergies Active No Inform ation Medications Medication Instructions Dosage Effective Dates (start - stop) Status Comments RITALIN (unknown strength) take 1 tablet by oral route 2 times every day Not Available - Active Procedures Procedure Date PREV VISIT, NEW, AGE 12-17 URINALYSIS NONAUTO W/O SCOPE Advance Directives Directive Yes / No Effective Date File Name No Information Encounters Encounter Description Practice Location Reason(s) For Visit Diagnoses Date Provider Providers Copied on Encounter [facility], [address] [place] [address], [facility], [phone] [facility] No Information 7 Alize Jimenez. [address] [place] [address], [facility], [place]. [phone] PREV VISIT, NEW, AGE 12-17 [facility], [address] [place] [address], [facility], [phone] [facility] PHYSICAL (chief complaint)S PORTS PHYSICAL (chief complaint) Encounter for exam for admission to educational institution 6 Roxann Martin. [address] [place] [address], [place]. tel:[phone] Family History Family Member Type Diagnosis Age At Onset No Information Payers Payer name Insurance type Covered green party ID Authoriza tion(s) No Information Social History Type Description Quantity Date Captured Comments Sex Female Smoking Status No Information Chief Complaint And Reason For Visit No Information Reason For Referral Reason For Referral No Information History Of Present Illness Encounter Date Complaint History Of Prese nt Illness SCHOOL PHYSICAL Pt presents for a school physical to into the ninth grade. SPORTS PHYSICAL Pt presents for a sports physical to participate in cheerleading and softball. Functional Status Date Functional Assessmen t No Information Instructions Date Instruction Additional Infor shawna f/u prn Related to Encou nter for exam for admission to educational institution Assessments Type Assessment Date No Information Patient Care Teams Name Effective Dates (start - stop) Status Members No Information
--- OUTSIDE RECORDS SUMMARY | 2024-06-06 02:24 | XMS_ITS | Clinical Summary ---
Author Organization [facility] Address [address] [place] [address] Phone Care Team Providers Care [employer] Name Role Phone KATINA ARELLANO MD Primary Care Provider [phone] Reason for Visit and Chief Complaint The Chief Complaint is: Pt is here for 1 mo check on bp and anxiety meds. Pt states medication is working well and needs refills Problems Includes: Problems addressed during this encounter and other active Problems Current Visit Onset Date Resolved Date Provider Conditio n Status Hypertension Systemic 09/09/2022 CHERI Anthony UNDERWEAR FINISHER Active Last Documented On 3 3:32PM ; [facility] Hyperlipidemia 01/27/2018 CHERI SANCHES UNDERWEAR FINISHER A ctive Last Documented On 8 10:44AM ; [facility] Generalized Anxiety Disorder 02/23/2015 CHERI SANCHES UNDERWEAR FINISHER Active Last Documented On 3 2:07PM ; [facility] Past Visits Onset Date Resolved Date Provider Condition Status Vitamin B12 Deficiency 10/02/2023 CHERI SURESH UNDERWEAR FINISHER Active Last Documented On 4 11:38AM ; [facility] 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 09/09/2012 CHERI SANCHES UNDERWEAR FINISHER Active Last Documented On 3 3:28PM ; [facility] Plan of Treatment - Weight loss diet - Last Documented On 04/03/2023 2:20PM ; [facility] - Return to the clinic if condition worsens or new symptoms arise - Last Documented On 04/03/2023 2:20PM ; [facility] Follow up: In 6 months or as needed Labs before appt lipid, cmp, vit b12/folate Added atorvastatin. Patient will continue working on healthy diet and exercise Recommend OTC vit b12 and folic acid. - Last Documented On 04/03/2023 2:20PM ; [facility] Referrals To Diagnosis Game Room Attendant [facility] - [address] [place] [address] - Encounter for other contraceptive management Note: BILLYeeds pap and nexpl anon removed Last Documented On 3 2:18PM ; [facility] Instructions to patient Lose weight Last Documented On 2:13PM ; [facility] Assessments Includes: Assessments from this encounter Findings - [I10 - Essential (primary) hypertension] Systemic hypertension - Last Documented On 04/03/2023 2:20PM ; [facility] - [E78.5 - Hyperlipidemia, unspecified] Hyperlipidemia - Last Documented On 04/03/2023 2:20PM ; [facility] - [F41.1 - Generalized anxiety disorder] Generalized anxiety disorder - Last Documented On 04/03/2023 2:20PM ; [facility] Instructions Includes: Instructions from this encounter Instructions to patient Lose weight Last Documented On 3 2:13PM ; [facility] Medical Equipment - Implanted Devices Includes: Current Devices No Medical Equipment Recorded Medications Includes: Medications discussed during this encounter and other current Medications New / Renewed during this visit CHERI NICOLE on 04/03/2023 Lexapro 10 MG Oral Tablet Provider: RANGEL NICOLE 90 day supply: 90 tablet, 1 refills Diagnosis: Generalized anxiety disorder One tablet daily Pharmacy: [facility] [address], [id number] - Last Documented On 10/02/2023 11:41AM By CHERI SANCHES BALL WARPER TENDER ; [facility] Atorvastatin Calcium 20 MG Oral Tablet Provider: CHERI NICOLE 90 day supply: 90 tablet, 1 refills Diagnosis: Hyperlipidemia, unspecified One tablet at bed time Pharmacy: [facility] [address], [id number] - Last Documented On 10/02/2023 11:43AM By CHERI SANCHES NP ; [facility] Losartan Potassium 25 MG Oral Tablet Provider: CHERI NICOLE 90 day supply: 90 tablet, 1 refills Diagnosis: Essential (primary) hypertension One tablet daily Pharmacy: [address], [phone] - Last Documented On 04/03/2023 2:19PM By CHERI SANCHES NP ; [facility] Past Medications on file Losartan Potassium 50 MG Oral Tablet 10/02/2023 - 03/30/2024 Provider: CHERI NICOLE Diagnosis: Essential (prima ry) hypertension One tablet daily Last Documented On 10/02/2023 12:04PM By CHERI SANCHES NP ; [facility] Omeprazole 20 MG Oral Capsule Delayed Release 10/02/2023 - 10/16/2023 Provider: CHERI NIOCLE Diagnosis: Gastro-esophagea l reflux disease without esophagitis One tablet daily Last Documented On 10/02/2023 11:57AM By CHERI SANCHES NP ; [facility] Atorvastatin Calcium 20 MG Oral Tablet 10/02/2023 - 03/30/2024 Provider: CHERI NICOLE Diagnosis: Hyperlipidemia, unspecified One tablet at bed time Last Documented On 10/02/2023 11:57AM By CHERI SANCHES NP ; [facility] Lexapro 10 MG Oral Tablet 10/02/2023 - 03/30/2024 Provider: CHERI NICOLE Diagnosis: Generalized anxi ety disorder One tablet daily Last Documented On 10/02/2023 11:57AM By CHERI SANCHES NP ; [facility] hydrOXYzine HCl 50 MG Oral Tablet 02/23/2023 - 03/25/2023 Provider: CHERI NICOLE Diagnosis: Panic disorder [episodic paroxysmal anxiety] One tablet twice a day as ne eded for anxiety/panic attacks Last Documented On 02/23/2023 2:33PM By CHERI SANCHES NP ; [facility] SUMAtriptan Succinate 50 MG Oral Tablet 04/17/2020 - 10/14/2020 Provider: CHERI NICOLE Diagnosis: Migraine with au ra, not intractable, w/o status migrainosus Take 1 tab at migraine onset , may repeat dose in 2 hours if needed Last Documented On 04/17/2020 2:53PM By CHERI SANCHES BALL WARPER TENDER ; [facility] Propranolol HCl ER 60 MG Oral Capsule Extended Release 24 Hour 01/24/2020 - 07/22/2020 Provider: CHERI NICOLE Diagnosis: Migraine with au ra, not intractable, w/o status migrainosus One tablet daily Last Documented On 01/24/2020 4:20PM By CHERI SANCHES BALL WARPER TENDER ; [facility] Ibuprofen 600MG Oral Tablet 09/24/2017 - 09/29/2017 Provider: CHERI NICOLE Diagnosis: Pain in right kn ee One tablet three times a day Last Documented On 09/24/2017 4:19PM By CHERI SANCHES BALL WARPER TENDER ; [facility] Benzonatate 100MG Oral Capsule 05/12/2017 - 05/17/2017 Provider: OBED REGALADO M.D. Diagnosis: Cough Give one capsule by mouth th rice daily as needed for cough; swallow whole Last Documented On 05/12/2017 11:37AM By OBED REGALADO MD ; [facility] ProAir HFA 108 (90 Base) MCG/ACT Aerosol Solution 05/06/2016 - 06/05/2016 Provider: ARMIDA WRIGHT PA-C Diagnosis: Wheezing 2 puffs four times a day as needed Last Documented On 6 10:52AM By ARMIDA STALLWORTH PA-C ; [facility] PredniSONE 20 MG Tablet 05/06/2016 - 05/11/2016 Provid er: ARMIDA STALLWORTH PA-C Diagnosis: Wheezing as directed 1 pill twice ino ly for 2 days then one pill daily for 3 days Last Documented On 6 10:52AM By ARMIDA STALLWORTH PA-C ; [facility] Azithromycin 250 MG Tablet 05/06/2016 - 06/05/2016 Pro vider: ARMIDA STALLWORTH PA-C Diagnosis: Cough 2 pills the first day then one daily Last Documented On 6 10:52AM By ARMIDA STALLWORTH PA-C ; [facility] Amoxicillin 875 MG Tablet 08/13/2015 - 08/20/2015 Prov ider: OBED REGALADO M.D. Diagnosis: One tablet twice a day Last Documented On 08/13/2015 1:24PM By OBED REGALADO MD ; [facility] Pseudoephedrine HCl 60 MG Tablet 05/15/2015 - 05/20/2015 Provider: OBED REGALADO M.D. Diagnosis: Acute upper respiratory infection, unspecified 1 every 6 hours as needed Last Documented On 05/15/2015 2:52PM By OBED REGALADO MD ; [facility] Benzonatate 100 MG Capsule, conventional 05/15/2015 - 05/20/2015 Provider: OBED Oneil Diagnosis: Cough Give one capsule by mouth th rice daily as needed for cough Last Documented On 05/15/2015 2:54PM By OBED REGALADO MD ; [facility] Cheratussin AC 100-10 MG/5ML OR SYRP 04/28/2014 - 05/12/2014 Provider: YOLY PETTY PA-C Diagnosis: COUGH 1-2 tsp q 4 hrs prn cough Yarely's [place]. Last Documented On 4 1:55PM By YOLY PETTY PA-C ; [facility] ProAir HFA 108 (90 Base) MCG/ACT IN AERS 04/28/2014 - 05/28/2014 Provider: YOLY PETTY PA-C Diagnosis: COUGH 2 puffs q 4-6 hrs PRN Last Documented On 4 1:58PM By YOLY PETTY PA-C ; [facility] Zithromax Z-Robin 250 MG OR TABS 04/24/2014 - 04/29/2014 Provider: YOLY PETTY PA-C Diagnosis: PNEUMONIA, ORGAN ISM NOS Take as directed. Last Documented On 4 11:22AM By YOLY PETTY PA-C ; [facility] raNITIdine HCl 150 MG OR TABS 11/15/2013 - 01/14/2014 Provider: NIA MCCOY PA-C Diagnosis: ESOPHAGEAL REFLU X 1/2 to 1 tablet daily Last Documented On 4 10:56AM By NIA MCCOY PA-C ; [facility] Clotrimazole 1% EX CREA 02/04/2013 - 03/06/2013 Provid er: BETHANY JULIO PA-C Diagnosis: apply BID x 2 weeks Last Documented On 3 9:24AM By BETHANY JULIO PA-C ; [facility] Amoxicillin 500 MG OR CAPS 05/09/2011 - 05/19/2011 Provider: BETHANY JULIO PA-C Diagnosis: OTITIS MEDIA NOS Last Documented On 1 11:46AM By BETHANY JULIO PA-C ; [facility] Krllgidy-Otgxqbanj-KH [id number] OT SOLN 11/29/2010 - 12/06/2010 Provider: OBED REGALADO M.D. Diagnosis: INFEC OTITIS EXTERNA NOS Instill four drops to affect ed ear(s) four times daily for seven days. Last Documented On 11/29/2010 12:38PM By OBED REGALADO MD ; [facility] Ciprodex 0.3-0.1% OT SUSP 11/28/2010 - 12/05/2010 Provider: OBED Oneil Diagnosis: INFEC OTITIS EXT DAWNA NOS Instill four drops in affect ed ear(s) twice daily for seven days. Last Documented On 11/28/2010 3:24PM By OBED REGALADO MD ; [facility] Amitriptyline HCl 10 MG OR TABS 06/20/2010 - 08/19/2010 Provider: OBED REGALADO M.D. Diagnosis: MIGRNE UNSP WO N TRC MGRN Give one-half tab by mouth e very night at bedtime Last Documented On 06/20/2010 3:44PM By OBED REGALADO MD ; [facility] Nix Creme Rinse 1% EX LIQD 03/15/2009 - 03/17/2009 Provider: OBED Oneil Diagnosis: Pediculus Capiti s After washing and drying juan r, saturate hair and scalp with creme rinse. Leave on head for 10-20 minutes, and then rinse. Last Documented On 03/15/2009 9:35AM By OBED REGALADO MD ; [facility] Medications Administered Includes: Administered Medications from this encounter No Administered Medications Recorded Vital Signs Includes: Vital Signs from this encounter Vital Name 04/03/2023 01:51P Blood Pressure Sitting L 132/76 BP Cuff Size Large Pulse Rate-Sitting (bpm) 88 Respiration Rate (breaths/min) 18 Temp-Oral (F) 98.3 Height (in) 65 Weight (lb) 259 Body Mass Index 43.1 Body Surface Area 2.2 Oxygen Saturation (%) 99 Last Documented: On 04/03/2023 1:51PM ; [facility] Results Includes: Results discussed during this encounter No Results Recorded For Specified Dates History of Present Illness Includes: History of Present Illness from this encounter JULIETH CHOI is a 22 year old female. - Allergy list reviewed - Problem list reviewed - Medication list reviewed - No systemic symptoms - No otolaryngeal symptoms - No cardiovascular symptoms - No pulmonary symptoms - No gastrointestinal symptoms - No genitourinary symptoms - No musculoskeletal symptoms - No skin symptoms Patient is being seen for 1 month follow up on Lexapro and to review labs. She states she is doing well with Lexapro and is happy on current dose. BP is controlled. Cholesterol is very high. A1C is 5.1. TSH is WNL. vit b12 and folate are on the low side of normal. She has no new concerns Social History Description Last Updated Non-smoker 11/21/2019 Last Documented On 3 1:47PM ; [facility] Smoking Status Unknown Procedures and Surgical History Includes: Procedures from this encounter Procedures Code Diagnosis Performing Provider Service L ocation Service Date plan of care reviewed and agreed to Last Documented On 3 2:17PM ; [facility] Medical History Includes: Medical History addressed during this encounter Description Last Updated History of headache syndromes : migraine 06/05/2023 Last Documented On 3 1:47PM ; [facility] Vaccine history Covid 11/12/21 and my sec ond dose of covid on 12/03/21 09/09/2022 Last Documented On 3 1:47PM ; [facility] Hyperlipidemia 02/12/2010 Last Documented On 3 1:47PM ; [facility] Obesity 02/12/2010 Last Documented On 3 1:47PM ; [facility] Patient's weight: 7 lbs 13 OZ 01/23 Last Documented On 3 1:47PM ; [facility] Family History Includes: Family History addressed during this encounter Description Last Updated Diabetes (paternal grandfather) 10/23/19 13 Last Documented On 3 1:47PM ; [facility] Paternal history of cholesterol problems 10/22/2012 Last Documented On 3 1:47PM ; [facility] Family medical history 10/01/2012 Last Documented On 3 1:47PM ; [facility] Paternal history of attention-deficit hy peractivity disorder 09/16/2011 Last Documented On 3 1:47PM ; [facility] Family history of hypertension 2 Last Documented On 3 1:47PM ; [facility] Maternal aunt's history of headache synd romes : migraine 02/12/2010 Last Documented On 3 1:47PM ; [facility] Maternal grandmother's history of headac he syndromes : migraine 02/12/2010 Last Documented On 3 1:47PM ; [facility] Maternal history of headache syndromes 0 02/12/2010 Last Documented On 3 1:47PM ; [facility] Cancer 02/07/2009 Last Documented On 3 1:47PM ; [facility] Family history of diabetes mellitus 01/23 Last Documented On 3 2:04PM ; [facility] Review of Systems Includes: Review of Systems from this encounter Systemic: Not feeling poorly (malaise). No fever and no edema. Head: No headache. Otolaryngeal: No earache, no nasal discharge, and no sore throat. Cardiovascular: No chest pain or discomfort, no palpitations, and the heart rate was not fast. Pulmonary: No dyspnea and not expressed as feeling short of breath. No cough and no wheezing. Gastrointestinal: No nausea, no vomiting, no diarrhea, and no constipation. Genitourinary: No dysuria. Neurological: No dizziness and no fainting. Mental Status Includes: Mental Status from this encounter Description Oriented to time, place, and person Functional Status Includes: Functional Status from this encounter No Functional Status Recorded Physical Exam Includes: Physical Exam from this encounter Allergies Includes: Active Allergies Substance Type Reaction Onset Date Resolved Date Statu s Lisinopril Allergy Cough 10/01/2022 Active Last Documented On 4 11:18AM ; [facility] Encounters Encounter Provider Location Date Check-In Time Check-Out Time Diagnosis FOLLOW UP CHERI SANCHES [facility] 3 1:46PM 2:22PM Hyperlipidemi a,Hypertensio n Systemic,Gene ralized Anxiety Disorder Insurance Includes: Active Insurance Policies Plan Name Member ID Group # Subscriber Relationship Effect joann Dates 1 - [facility] [id number] YASEMIN CHOI Self Clinical Notes Includes: Clinical Notes from this encounter * Progress note Date Encounter Last Documented by 04/03/2023 FOLLOW UP Last documented on 04/03/2023; 2:20 PM, CHERI RODRIGUEZP; [facility] Active Problems & Conditions - G43.009 - 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 - Z83.3 - Family History of Diabetes Mellitus - F41.1 - Generalized Anxiety Disorder - E78.5 - Hyperlipidemia - I10 - Hypertension Systemic Chief Complaint The Chief Complaint is: Pt is here for 1 mo check on bp and anxiety meds. Pt states medication is working well and needs refills. History of Present Illness YASEMIN CHOI is a 22 year old female. - Allergy list reviewed - Problem list reviewed - Medication list reviewed - No systemic symptoms - No otolaryngeal symptoms - No cardiovascular symptoms - No pulmonary symptoms - No gastrointestinal symptoms - No genitourinary symptoms - No musculoskeletal symptoms - No skin symptoms Patient is being seen for 1 month follow up on Lexapro and to review labs. She states she is doing well with Lexapro and is happy on current dose. BP is controlled. Cholesterol is very high. A1C is 5.1. TSH is WNL. vit b12 and folate are on the low side of normal. She has no new concerns Current Medication - Lexapro 10 MG Oral Tablet One tablet daily, 30 days, 0 refills - Losartan Potassium 25 MG Oral Tablet One tablet daily, 30 days, 0 refills Past Medical/Surgical History Reported: Medical: Vaccine history Covid 11/12/21 and my second dose of covid on 12/03/21, Hyperlipidemia, and Obesity. Pediatric: Patient's weight: 7 lbs 13 OZ. Diagnoses: Headache syndromes: migraine Social History Tobacco use: Non-smoker. Allergies - Lisinopril Reaction: Cough Family History Cancer Diabetes (paternal grandfather) Systemic hypertension Diabetes mellitus Paternal: Cholesterol problems Attention-deficit hyperactivity disorder Maternal: Headache syndromes Maternal grandmother's: Headache syndromes: migraine Maternal aunt's: Headache syndromes: migraine Review Of Systems Systemic: Not feeling poorly (malaise). No fever and no edema. Head: No headache. Otolaryngeal: No earache, no nasal discharge, and no sore throat. Cardiovascular: No chest pain or discomfort, no palpitations, and the heart rate was not fast. Pulmonary: No dyspnea and not expressed as feeling short of breath. No cough and no wheezing. Gastrointestinal: No nausea, no vomiting, no diarrhea, and no constipation. Genitourinary: No dysuria. Neurological: No dizziness and no fainting. Physical Findings - Vitals taken 04/03/2023 01:51 pm BP-Sitting L 132/76 mmHg BP Cuff Size Large Pulse Rate-Sitting 88 bpm Respiration Rate 18 per min Temp-Oral 98.3 F Height 65 in Weight 259 lbs Body Mass Index 43.1 kg/m2 Body Surface Area 2.2 m2 Oxygen Saturation 99 % General Appearance: - Well developed. - Well nourished. - In no acute distress. Ears: General/bilateral: External Auditory Canal: - External auditory meatus normal. Tympanic Membrane: - Normal. Nose: General/bilateral: Discharge: - No nasal discharge. Lymph Nodes: - Supraclavicular lymph nodes were not enlarged. Lungs: - Normal breath sounds/voice sounds. - No wheezing was heard. - No rhonchi were heard. - No rales/crackles were heard. Cardiovascular: Heart Rate And Rhythm: - Normal. Murmurs: - No murmurs were heard. Edema: - Not present. Back: - No costovertebral angle tenderness. Abdomen: Auscultation: - Bowel sounds were normal. Palpation: - Abdominal non-tender. Musculoskeletal System: General/bilateral: - Musculoskeletal system: normal. Neurological: - Oriented to time, place, and person. Gait And Stance: - Normal. Skin: - General appearance was normal. Assessment - [I10 - Essential (primary) hypertension] Systemic hypertension - [E78.5 - Hyperlipidemia, unspecified] Hyperlipidemia - [F41.1 - Generalized anxiety disorder] Generalized anxiety disorder Therapy - Plan of care reviewed and agreed to. Vaccinations - Did not receive dose of influenza virus vaccine - Did not receive dose of pneumococcal vaccine Counseling/Education - Lose weight Plan StartCited - Encounter for other contraceptive management Referral: Game Room Attendant Instructions: [facility] Needs pap and nexplanon removed EndCited StartCited - Essential (primary) hypertension Losartan Potassium 25 MG tablet One tablet daily, 90 days, 1 refills EndCited StartCited - Generalized anxiety disorder Lexapro 10 MG tablet One tablet daily, 90 days, 1 refills EndCited StartCited - Hyperlipidemia, unspecified Atorvastatin Calcium 20 MG tablet One tablet at bed time, 90 days, 1 refills EndCited - Weight loss diet - Return to the clinic if condition worsens or new symptoms arise Follow up: In 6 months or as needed Labs before appt lipid, cmp, vit b12/folate Added atorvastatin. Patient will continue working on healthy diet and exercise Recommend OTC vit b12 and folic acid. Health Reminders - Assess Blood Pressure satisfied 04/03/2023. - Assess BMI satisfied 04/03/2023. - Assess Tobacco Use satisfied 11/21/2019. - Follow Up Plan BMI Management satisfied 04/03/2023. - Follow up plan for Depression Screening satisfied 04/03/2023.
--- OUTSIDE RECORDS SUMMARY | 2024-06-06 02:24 | XMS_ITS ---
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 Name Role Phone KATINA ARELLANO MD Primary Care Provider [phone] Reason for Referral Date Encounter Description Provider Reason for Referral 09/09/22 EMERGENCY ROOM FOLLOWUP-ESTABLISHED PT HAILEE SANCHES CONSTRUCTION COORDINATOR Request Consultation By Specialist Problems Includes: Active, inactive, and resolved Problems All Visits Onset Date Resolved Date Provider Condition S tatus Vitamin B12 Deficiency 10/02/2023 HAILEE SURESH CONSTRUCTION COORDINATOR Active Last Documented On 4 11:38AM ; [facility] Hypertension Systemic 09/09/2022 HAILEE Anthony CONSTRUCTION COORDINATOR Active Last Documented On 3 3:32PM ; [facility] Hyperlipidemia 01/27/2018 HAILEE SANCHES CONSTRUCTION COORDINATOR A ctive Last Documented On 8 10:44AM ; [facility] Generalized Anxiety Disorder 02/23/2015 HAILEE SANCHES CONSTRUCTION COORDINATOR Active Last Documented On 3 2:07PM ; [facility] Visit For: Student Physical 10/01/2012 Unknown OBED REGALADO M.D. 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 Will start on omeprazole for 2 weeks. Follow up if acid reflux symptoms do not resolve or come right back and will consider referral to GI ANNUAL PHYSICAL EXAM with HAILEE SANCHES [facility] 10/02/2023 Last Documented On 4 11:58AM ; [facility] Ordered return to the clinic if condition worsens or new symptoms arise [facility]AL [facility]ICAL [facility] 10/02/2023 Last Documented On 4 11:58AM ; [facility] Ordered weight loss diet ANNUAL PHYSICAL EXAM wi th [facility] 10/02/2023 Last Documented On 4 11:58AM ; [facility] Follow up: In 6 months or as needed Labs before appt lipid, cmp, vit b12/folate Added atorvastatin. Patient will continue working on healthy diet and exercise Recommend OTC vit b12 and folic acid FOLLOW UP with HAILEE N [facility] 04/03/2023 Last Documented On 3 2:20PM ; [facility] Ordered return to the clinic if condition worsens or new symptoms arise FOLLOW UP with HAILEE Wally [facility] 04/03/2023 Last Documented On 3 2:20PM ; [facility] Ordered weight loss diet FOLLOW UP with HAILEE N [facility] 04/03/2023 Last Documented On 3 2:20PM ; [facility] Follow up: In 1 month to evaluate bp, anxiety, and review labs We will call with any emergent labs Discussed risk of suicidal thoughts on SSRIs. Patient is aware to go to ER for any problems with this EMERGENCY ROOM FOLLOWUP-ESTABLISHED [facility] 02/23/2023 Last Documented On 3 2:28PM ; [facility] Ordered return to the clinic if condition worsens or new symptoms arise EMERGENCY ROOM FOLLOWUP-ESTABLISHED PT with HAILEE SANCHES [facility] 02/23/2023 Last Documented On 3 2:28PM ; [facility] Ordered return to the clinic if condition worsens or new symptoms arise [facility] 10/01/2022 Last Documented On 3 2:45PM ; [facility] Ordered follow-up visit in 1 week for bp follow up Go home and take additional 10 mg of lisinopril now Start taking 20 mg daily tomorrow Go to ER for any worsening symptoms EMERGENCY ROOM FOLLOWUP-ESTABLISHED PT with HAILEE SANCHES [facility] 09/09/2022 Last Documented On 3 4:07PM ; [facility] Ordered weight loss diet EMERGENCY ROOM FOLLOWUP-ESTABLISHED PT with HAILEE SANCHES [facility] 09/09/2022 Last Documented On 3 4:07PM ; [facility] Requested Referred to: EMERGENCY ROOM FO LLOWUP-ESTABLISHED PT with HAILEE SANCHES [facility] 09/09/2022 Last Documented On 3 4:07PM ; [facility] Requested request consultati on by specialist EMERGENCY ROOM FOLLOWUP-ESTABLISHED PT with HAILEE SANCHES [facility] 09/09/2022 Last Documented On 3 4:07PM ; [facility] Follow up: In 2 weeks to reymundo dawkinsate headaches on propranolol and review labs EMERGENCY ROOM FOLLOW UP with HAILEE SANCHES [facility] 11/21/2019 Last Documented On 0 3:35PM ; [facility] Ordered return to the clinic if condition worsens or new symptoms arise EMERGENCY ROOM FOLLOW UP with HAILEE CAMARGOGabrielle [facility] 11/21/2019 Last Documented On 0 3:35PM ; [facility] Call for any increasing redn ess or pustular discharge Continue soaking in epsom salt daily PROBLEM VISIT with HAILEE CAMARGOGabrielle [facility] 08/17/2019 Last Documented On 0 11:13AM ; [facility] Ordered return to the clinic if condition worsens or new symptoms arise PROBLEM VISIT with HAILEE CAMARGOGabrielle [facility] 08/17/2019 Last Documented On 0 11:13AM ; [facility] Ordered Transition in care, clinical summary provided PROBLEM VISIT with HAILEE CAMARGOGabrielle [facility] 08/17/2019 Last Documented On 0 11:13AM ; [facility] Follow up: Yearly or as need ed We will call with lab results SPORTS PHYSICAL with HAILEE SANCHES [facility] 07/07/2018 Last Documented On 9 4:32PM ; [facility] Ordered return to the clinic if condition worsens or new symptoms arise SPORTS PHYSICAL with HAILEE N VERÓNICA [facility] 07/07/2018 Last Documented On 9 4:32PM ; [facility] Ordered follow-up visit as needed SAME D AY SICK VISIT with ALEXANDR MONTOYA CONSTRUCTION COORDINATOR-C 06/17/2018 Last Documented On 9 3:55PM ; [facility] Ordered return to the clinic if condition worsens or new symptoms arise SAME DAY SICK VISIT with ALEXANDR GLASGOWAGUSTÍN [facility] 06/17/2018 Last Documented On 9 3:55PM ; [facility] Patient to call Thursday 09/28 a nd report how pain is doing. If no better will order MRI SAME DAY SICK VISIT with HAILEE SANCHES [facility] 09/24/2017 Last Documented On 8 4:23PM ; [facility] Ordered return to the clinic if condition worsens or new symptoms arise SAME DAY SICK VISIT with HAILEE SANCHES [facility] 09/24/2017 Last Documented On 8 4:23PM ; [facility] Ordered patient will call fo r appointment as needed SAME DAY SICK VISIT with HAILEE SANCHES [facility] 06/25/2017 Last Documented On 8 3:29PM ; [facility] Ordered return to the clinic if condition worsens or new symptoms arise SAME DAY SICK VISIT with HAILEE SANCHES [facility] 06/25/2017 Last Documented On 8 3:29PM ; [facility] Ordered follow-up visit as needed SAME D AY SICK VISIT with OBED REGALADO M.D. 05/12/2017 Last Documented On 7 2:25PM ; [facility] Ordered patient will call fo r appointment as needed SPORTS PHYSICAL with HAILEE SANCHES [facility] 01/06/2017 Last Documented On 7 10:07AM ; [facility] Ordered return to the clinic if condition worsens or new symptoms arise SPORTS PHYSICAL with HAILEE SANCHES [facility] 01/06/2017 Last Documented On 7 10:07AM ; [facility] Ordered follow-up visit in o ne month for recheck; sooner with questions or concerns MED CHECK with OBED REGALADO M.D. 07/17/2015 Last Documented On 6 9:29PM ; [facility] Ordered follow-up visit as n eeded; no smoking around [place] SAME DAY SICK VISIT with OBED REGALADO M.D. 05/15/2015 Last Documented On 5 3:15PM ; [facility] Ordered follow-up visit as n eeded; no smoking around [place] SAME DAY SICK VISIT with OBED REGALADO M.D. 05/08/2015 Last Documented On 5 4:19PM ; [facility] Ordered follow-up visit in o ne month for recheck; sooner with questions or concerns MED CHECK with OBED REGALADO M.D. 11/07/2014 Last Documented On 5 2:15PM ; [facility] Ordered patient will call fo r appointment as needed SPORTS PHYSICAL with ALEJANDRA NICOLE-TRENT 10/23/2014 Last Documented On 5 4:15PM ; [facility] Ordered return to the clinic if condition worsens or new symptoms arise SPORTS PHYSICAL with ALEJANDRA HOUSE 10/23/2014 Last Documented On 5 4:15PM ; [facility] Ordered follow-up visit as n eeded; no smoking around [place] GENERAL OFFICE VISIT with OBED REGALADO M.D. 05/09/2014 Last Documented On 4 2:38PM ; [facility] Ordered Clinical summary pro vided to patient . Plan discussed and patient/parent/caregiver states understanding SICK VISIT with YOLY PETTY PA-C 04/28/2014 Last Documented On 4 2:00PM ; [facility] Ordered follow-up visit as n eeded with an office visit. Push fluids, rest. Tylenol/motrin for pain. Claritin/zyrtec. Call if symptoms worsen/persist beyond 5 days or if fever develops SICK VISIT with YOLY PETTY PA-C 04/28/2014 Last Documented On 4 2:00PM ; [facility] Ordered Clinical summary pro vided to patient . Plan discussed and patient/parent/caregiver states understanding SICK VISIT with YOLY PETTY PA-C 04/24/2014 Last Documented On 4 11:32AM ; [facility] Ordered follow-up visit as n eeded with an office visit. Continue mucinex for cough/congestion. Push fluids, rest. Call if symptoms worsen/persist beyond 4-5 days--consider chest xray SICK VISIT with YOLY PETTY PA-C 04/24/2014 Last Documented On 4 11:32AM ; [facility] Ordered follow-up visit in o ne month for recheck; no smoking around [place] GENERAL OFFICE VISIT with OBED REGALADO M.D. 11/29/2013 Last Documented On 4 7:23PM ; [facility] Ordered follow-up visit as n eeded with an office visit. PROBLEM VISIT with NIA MCCOY PA-C 11/15/2013 Last Documented On 4 11:04AM ; [facility] Ordered patient to call if crystal vera develops PROBLEM VISIT with NIA MCCOY PA-C 11/15/2013 Last Documented On 4 11:04AM ; [facility] Ordered return to the clinic if condition worsens or new symptoms arise PROBLEM VISIT with NIA MCCOY PA-C 11/15/2013 Last Documented On 4 11:04AM ; [facility] Ordered follow-up visit in s ix months for recheck; sooner with questions or concerns ADHD CK-UP with OBED REGALADO M.D. 07/07/2013 Last Documented On 4 9:27AM ; [facility] advised to keep foot clean a nd dry - stressed importance of dryness. apply clotrimazole twice a day, may take 2 weeks for it to heal up F/U if no improvement or symptoms worsen GENERAL OFFICE VISIT with BETHANY JULIO PA-C 02/04/2013 Last Documented On 3 4:28PM ; [facility] Ordered follow-up visit as n eeded; no smoking around [place] SICK VISIT with OBED REGALADO M.D. 10/21/2012 Last Documented On 3 9:51AM ; [facility] Ordered follow-up visit in o ne month for recheck; sooner with questions or concerns ADHD CK-UP with OBED REGALADO M.D. 07/22/2012 Last Documented On 3 1:19PM ; [facility] otc claritin or zyrtec daily F/U prn SICK VISIT with BETHANY JULIO PA-C 05/26/2012 Last Documented On 3 3:11PM ; [facility] ultrasound RLQ abdomen lab o rder given to dad for CBC, CMP, LIPIDS, TSH F/U based on above SICK VISIT with BETHANY JULIO PA-C 02/02/2012 Last Documented On 2 2:02PM ; [facility] Discussed with Dr. Regalado and I will go ahead and give dad the prescription today, but in the future he knows they need to give 1-2 days notice if they are picking up at our office. If they would like to pick it up at another [facility] Office, then they will need to allow 3-4 days. Also advised that when they pick it up, they need to have their photo ID and they will have to sign for it as it is a Schedule II drug. As far as cost, we did discuss the fact that some parents opt to have a med vacation and not medicate on the weekends or even during the summer. There may be some cheaper alternatives as well, but all of that will need to be discussed with Dr. Regalado as he is the pediatric ADHD expert and is the one that saw her. Dad understands this and agrees [Patient Encounter] with BETHANY JULIO PA-C 10/15/2011 Last Documented On 2 2:47PM ; [facility] Ordered follow-up visit in o ne month for recheck; sooner with questions or concerns GENERAL OFFICE VISIT with OBED REGALADO M.D. 09/16/2011 Last Documented On 2 3:54PM ; [facility] F/U SICK VISIT with BETHANY JULIO PA-C 05/09/2011 Last Documented On 1 3:20PM ; [facility] Ordered follow-up visit as n eeded; no smoking around [place] SICK VISIT with OBED REGALADO M.D. 11/28/2010 Last Documented On 1 3:29PM ; [facility] Ordered return to the clinic if condition worsens or new symptoms arise monitor tingling sensation in arm, if sx don;t resolve, pt is to f.u in office SICK VISIT with FREDDY WINN PA-C 07/29/2010 Last Documented On 1 3:14PM ; [facility] Ordered follow-up visit in o ne month to recheck symptoms; no smoking around [place] WELL CHILD EXAM with OBED REGALADO M.D. 06/20/2010 Last Documented On 1 4:23PM ; [facility] Ordered a comprehensive metabolic panel GENERAL OFFICE VISIT with OBED REGALADO M.D. 03/15/2009 Last Documented On 9 4:33PM ; [facility] Ordered a lipid profile GENERAL OFFICE VISIT wit h OBED REGALADO M.D. 03/15/2009 Last Documented On 9 4:33PM ; [facility] Ordered CBC with differential GENERAL OFFICE VIS IT with OBED REGALADO M.D. 03/15/2009 Last Documented On 9 4:33PM ; [facility] Ordered follow-up visit as n eeded with an office visit; call with questions or concerns GENERAL OFFICE VISIT with OBED REGALADO M.D. 03/15/2009 Last Documented On 9 4:33PM ; [facility] Referrals To Diagnosis Pediatric Specialist JASPER HURTADO [facility] - [address] Room 1100 [phone] - HYPERLIPIDEMIA NEC/NOS Last Documented On 0 9:50AM ; [facility] Fiscal Agent [address] [address] - HYPERLIPIDEMIA NEC/NOS Note: Wed, Thurs, Fri are be st Last Documented On 2 4:48PM ; [facility] Photo Mask Pattern Generator REBECA QUEVEDO MD Other ovari an cyst, left side Last Documented On 0 3:07PM ; [facility] Podiatry REBECA GREERM Masoud g nail Note: [place] Last Documented On 2 3:43PM ; [facility] Photo Mask Pattern Generator Encounter for ot h general cnsl and advice on contraception Note: [facility] Last Documented On 4 10:10AM ; [facility] Counselor Generalized anxi ety disorder Note: [place] Last Documented On 3 8:10AM ; [facility] Photo Mask Pattern Generator [facility] - [address] [place] [address] - Encounter for other contraceptive management Note: TOMeeds pap and nexpl anon removed Last Documented On 3 2:18PM ; [facility] Counselor Generalized anxi ety disorder Note: [facility] Last Documented On 4 10:59AM ; [facility] Instructions to patient Intervention and counseling on cessation of tobacco use Last Documented On 4 11:27AM ; [facility] Lose weight Last Documented On 4 11:44AM ; [facility] Instructions for patient : B reast Self Exam discussed and technique reviewed Last Documented On 4 10:07AM ; [facility] Discussed Gardasil vaccinati on and recommend vaccination for HPV prevention. Handout given. Patient understands sexual transmission of high-risk HPV and the association with abnormal pap smear and cervical cancer. Recommend to decrease high risk behaviors such as: number or sexual partners and smoking; and to use barrier contraceptives Last Documented On 4 10:07AM ; [facility] Lose weight Last Documented On 3 2:13PM ; [facility] Lose weight Last Documented On 3 4:07PM ; [facility] Maintain a healthy diet Last Documented On 9 4:28PM ; [facility] Instructions for patient Last Documented On 8 3:25PM ; [facility] Instructions for patient Last Documented On 5 1:40PM ; [facility] Recommend diet and exercise at least 30 min three times per week Last Documented On 3 4:24PM ; [facility] Education and Decision Aids were provided during visit for: Discussed nutritional needs Last Documented On 9 4:28PM ; [facility] Discussed activities Last Documented On 9 4:28PM ; [facility] Assessments Includes: Assessments for all patient encounters Findings Encounter Date Esophageal reflux without esophagitis AN NUAL PHYSICAL EXAM with HAILEELUCINA SANCHES CONSTRUCTION COORDINATOR 10/02/2023 Last Documented On 4 11:58AM ; [facility] Generalized anxiety disorder ANNUAL PHYSICAL EXA M with HAILEE Wally SANCHES [facility] 10/02/2023 Last Documented On 4 11:58AM ; [facility] Hyperlipidemia ANNUAL PHYSICAL EXAM with ALLISO Wally Wally SANCHES [facility] 10/02/2023 Last Documented On 4 11:58AM ; [facility] Routine adult history and ph ysical (18-64 yrs) with abnormal findings ANNUAL PHYSICAL EXAM with HAILEE Wally SANCHES [facility] 10/02/2023 Last Documented On 4 11:58AM ; [facility] Systemic hypertension ANNUAL PHYSICAL EXAM with HAILEE Wally SANCHES [facility] 10/02/2023 Last Documented On 4 11:58AM ; [facility] Vitamin B12 deficiency ANNUAL PHYSICAL EXAM with HAILEELUCINA SANCHES [facility] 10/02/2023 Last Documented On 4 11:58AM ; [facility] Encounter for implantable cortez bdermal contraceptive WELL WOMAN - NEW PATIENT with BRIA TORRES MD 06/05/2023 Last Documented On 4 10:26AM ; [facility] Fibrocystic disease of breast WELL WOMAN - NEW PATIENT with BRIA TORRES MD 06/05/2023 Last Documented On 4 10:26AM ; [facility] NORMAL FEMALE EXAM WELL WOMAN - NEW PATIENT with BRIA TORRES MD 06/05/2023 Last Documented On 4 10:26AM ; [facility] Generalized anxiety disorder FOLLOW UP with DANIEL GIBBS Wally SANCHES CONSTRUCTION COORDINATOR 04/03/2023 Last Documented On 3 2:20PM ; [facility] Hyperlipidemia FOLLOW UP with HAILEELUCINA SANCHES F [employer] 04/03/2023 Last Documented On 3 2:20PM ; [facility] Systemic hypertension FOLLOW UP with HAILEELUCINA SANTIZO CONSTRUCTION COORDINATOR 04/03/2023 Last Documented On 3 2:20PM ; [facility] Acanthosis nigricans EMERGENCY ROOM FOLL OWUP-ESTABLISHED PT with HAILEE N SAGEZ CONSTRUCTION COORDINATOR 02/23/2023 Last Documented On 3 2:28PM ; [facility] Common migraine (without aur a) without intractable migraine without status migrainosus EMERGENCY ROOM FOLLOWUP-ESTABLISHED PT with HAILEE N SAGEZ CONSTRUCTION COORDINATOR 02/23/2023 Last Documented On 3 2:28PM ; [facility] Generalized anxiety disorder EMERGENCY R OOM FOLLOWUP-ESTABLISHED PT with HAILEE N SAGEZ CONSTRUCTION COORDINATOR 02/23/2023 Last Documented On 3 2:28PM ; [facility] Hyperlipidemia EMERGENCY ROOM FOLLO WUP-ESTABLISHED PT with HAILEE N SAGEZ CONSTRUCTION COORDINATOR 02/23/2023 Last Documented On 3 2:28PM ; [facility] Panic disorder without agoraphobia with panic attacks EMERGENCY ROOM FOLLOWUP-ESTABLISHED PT with HAILEE N SAGEZ CONSTRUCTION COORDINATOR 02/23/2023 Last Documented On 3 2:28PM ; [facility] Systemic hypertension EMERGENCY ROOM FOL LOWUP-ESTABLISHED PT with HAILEE N SAGEZ CONSTRUCTION COORDINATOR 02/23/2023 Last Documented On 3 2:28PM ; [facility] Systemic hypertension FOLLOW UP with HAILEE Wally SANTIZO CONSTRUCTION COORDINATOR 10/01/2022 Last Documented On 3 2:45PM ; [facility] Systemic hypertension FOLLOW UP with RENATA MORENO CONSTRUCTION COORDINATOR-BC 09/17/2022 Last Documented On 3 4:52PM ; [facility] Contraceptive management EMERGENCY ROOM FOLLOWUP-ESTABLISHED PT with HAILEE N SAGEZ CONSTRUCTION COORDINATOR 09/09/2022 Last Documented On 3 4:07PM ; [facility] Fatigue EMERGENCY ROOM FOLLOWUP-ESTABLIS HED PT with HAILEE N SAGEZ CONSTRUCTION COORDINATOR 09/09/2022 Last Documented On 3 4:07PM ; [facility] Hyperlipidemia EMERGENCY ROOM FOLLO WUP-ESTABLISHED PT with HAILEE N SAGEZ CONSTRUCTION COORDINATOR 09/09/2022 Last Documented On 3 4:07PM ; [facility] Strabismus in the right eye EMERGENCY RO OM FOLLOWUP-ESTABLISHED PT with HAILEE N SAGEZ CONSTRUCTION COORDINATOR 09/09/2022 Last Documented On 3 4:07PM ; [facility] Systemic hypertension EMERGENCY ROOM FOL LOWUP-ESTABLISHED PT with HAILEELUCINA CAMARGOGabrielle [facility] 09/09/2022 Last Documented On 3 4:07PM ; [facility] Tension-type headache with intractable headache EMERGENCY ROOM FOLLOWUP-ESTABLISHED PT with HAILEELUCINA CAMARGOGabrielle [facility] 09/09/2022 Last Documented On 3 4:07PM ; [facility] Visual disturbances EMERGENCY ROOM FOLLO WUP-ESTABLISHED PT with HAILEELUCINA CAMARGOGabrielle [facility] 09/09/2022 Last Documented On 3 4:07PM ; [facility] Chest pain EMERGENCY ROOM FOLLOW UP with AL MAU CAMARGOGabrielle [facility] 11/21/2019 Last Documented On 0 3:35PM ; [facility] Classic migraine (with aura) without intractable migraine without status migrainosus EMERGENCY ROOM FOLLOW UP with HAILEELUCINA [facility]rielle [facility] 11/21/2019 Last Documented On 0 3:35PM ; [facility] Fatigue EMERGENCY ROOM FOLLOW UP with AL MAU Wally MARY JOGabrielle [facility] 11/21/2019 Last Documented On 0 3:35PM ; [facility] Hyperlipidemia EMERGENCY ROOM FOLLOW UP with AL LISON Wally CAMARGOGabrielle [facility] 11/21/2019 Last Documented On 0 3:35PM ; [facility] Ingrowing toenail PROBLEM VISIT with HAILEE Wally Jarrod MALDONADOGabrielle [facility] 08/17/2019 Last Documented On 0 11:13AM ; [facility] Hyperlipidemia SPORTS PHYSICAL with HAILEE SANTIZO [facility] 07/07/2018 Last Documented On 9 4:32PM ; [facility] Routine adolescent history a nd physical (12-17 yrs) without abnormal findings SPORTS PHYSICAL with HAILEE SANCHES [facility] 07/07/2018 Last Documented On 9 4:32PM ; [facility] Abdominal pain SAME DAY SICK VISIT with ALEXANDR MONTOYA CONSTRUCTION COORDINATOR-C 06/17/2018 Last Documented On 9 3:55PM ; [facility] Assessment of family history of cancer S KERI DAY SICK VISIT with ALEXANDR NICOLE-C 06/17/2018 Last Documented On 9 3:55PM ; [facility] Family history of diabetes mellitus SAME DAY SICK VISIT with ALEXANDR MONTOYA CONSTRUCTION COORDINATOR-C 06/17/2018 Last Documented On 9 3:55PM ; [facility] Family history of hypertension SAME DAY SICK VISIT with ALEXANDR GLASGOWLIN CONSTRUCTION COORDINATOR-C 06/17/2018 Last Documented On 9 3:55PM ; [facility] Hyperlipidemia SAME DAY SICK VISIT with ALEXANDR GLASGOWLIN CONSTRUCTION COORDINATOR-C 06/17/2018 Last Documented On 9 3:55PM ; [facility] Maternal aunt's history of h eadache syndromes SAME DAY SICK VISIT with ALEXANDR MONTOYA CONSTRUCTION COORDINATOR-C 06/17/2018 Last Documented On 9 3:55PM ; [facility] Maternal grandmother's histo ry of headache syndromes SAME DAY SICK VISIT with ALEXANDR GLASGOWLIN CONSTRUCTION COORDINATOR-C 06/17/2018 Last Documented On 9 3:55PM ; [facility] Maternal history of headache syndromes S KERI DAY SICK VISIT with ALEXANDR MONTOYA CONSTRUCTION COORDINATOR-C 06/17/2018 Last Documented On 9 3:55PM ; [facility] Paternal history of attentio n-deficit hyperactivity disorder SAME DAY SICK VISIT with ALEXANDR GLASGOWLIN CONSTRUCTION COORDINATOR-C 06/17/2018 Last Documented On 9 3:55PM ; [facility] Hyperlipidemia * PHONE CALL with HAILEE Anthony [facility] 01/27/2018 Last Documented On 8 10:45AM ; [facility] Arthralgia of the right knee/patella/tibia/fibula REFERRAL with HAILEE SANCHES CONSTRUCTION COORDINATOR 09/29/2017 Last Documented On 8 10:32AM ; [facility] Arthralgia of the right knee/patella/tibia/fibula SAME DAY SICK VISIT with HAILEE SANCHES CONSTRUCTION COORDINATOR 09/24/2017 Last Documented On 8 4:23PM ; [facility] Acanthosis nigricans SAME DAY SICK VISIT with RANGEL RODRIGUEZP 06/25/2017 Last Documented On 8 3:29PM ; [facility] Common cold SAME DAY SICK VISIT with HAILEE NICOLE 06/25/2017 Last Documented On 8 3:29PM ; [facility] Assessment of cough SAME DAY SICK VISIT with EH REGALADO M.D. 05/12/2017 Last Documented On 7 2:25PM ; [facility] Influenza SAME DAY SICK VISIT with OBED REGALADO M.D. 05/12/2017 Last Documented On 7 2:25PM ; [facility] Patient is approved for part icipation in School, Physical Education, and Sports for 1 year SPORTS PHYSICAL with HAILEE SANCHES [facility] 01/06/2017 Last Documented On 7 10:07AM ; [facility] SCHOOL/SPORT PHYSICAL SPORTS PHYSICAL with CASIMIRO GT SANCHES [facility] 01/06/2017 Last Documented On 7 10:07AM ; [facility] ADHD, predominantly inattentive type MED CHECK w john REGALADO M.D. 07/17/2015 Last Documented On 6 9:29PM ; [facility] cotton tier use of other medications MED CHECK wit h OBED REGALADO M.D. 07/17/2015 Last Documented On 6 9:29PM ; [facility] Migraine headache MED CHECK with OBED Marie 07/17/2015 Last Documented On 6 9:29PM ; [facility] Assessment of cough SAME DAY SICK VISIT with EH REGALADO M.D. 05/15/2015 Last Documented On 5 3:15PM ; [facility] Upper respiratory infection SAME DAY SICK VISIT with OBED REGALADO M.D. 05/15/2015 Last Documented On 5 3:15PM ; [facility] Assessment of cough SAME DAY SICK VISIT with EH REGALADO M.D. 05/08/2015 Last Documented On 5 4:19PM ; [facility] Upper respiratory infection SAME DAY SICK VISIT with OBED REGALADO M.D. 05/08/2015 Last Documented On 5 4:19PM ; [facility] ADHD, predominantly inattentive type MED CHECK w john REGALADO M.D. 11/07/2014 Last Documented On 5 2:15PM ; [facility] cotton tier use of other medications MED CHECK wit h OBED REGALADO M.D. 11/07/2014 Last Documented On 5 2:15PM ; [facility] Patient is approved for part icipation in School, Physical Education, and Sports for 1 year SPORTS PHYSICAL with ALEJANDRA S [facility]IE [facility]- 10/23/2014 Last Documented On 5 4:15PM ; [facility] SCHOOL/SPORT PHYSICAL SPORTS PHYSICAL with KEVIN Garay [facility]- 10/23/2014 Last Documented On 5 4:15PM ; [facility] Hemangioma GENERAL OFFICE VISIT with OBED REGALADO M.D. 05/09/2014 Last Documented On 4 2:38PM ; [facility] Assessment of cough SICK VISIT with YOLY COWAN PA-C 04/28/2014 Last Documented On 4 2:00PM ; [facility] Upper respiratory infection SICK VISIT with AIDA PETTY PA-C 04/28/2014 Last Documented On 4 2:00PM ; [facility] Pneumonia ? SICK VISIT with YOLY PETTY PA-C 04/24/2014 Last Documented On 4 11:32AM ; [facility] Hyperlipidemia GENERAL OFFICE VISIT with OBED REGALADO M.D. 11/29/2013 Last Documented On 4 7:23PM ; [facility] GERD PROBLEM VISIT with NIA LUEVANO PA-C 11/15/2013 Last Documented On 4 11:04AM ; [facility] Overweight PROBLEM VISIT with NIA CHAVEZ-Trang 11/15/2013 Last Documented On 4 11:04AM ; [facility] ADHD, predominantly inattentive type ADHD CK-UP with OBED REGALADO M.D. 07/07/2013 Last Documented On 4 9:27AM ; [facility] detention use of other medications ADHD CK-UP wi OBED REGALADO M.D. 07/07/2013 Last Documented On 4 9:27AM ; [facility] Tinea pedis GENERAL OFFICE VISIT with HOLLY DEWITT PA-C 02/04/2013 Last Documented On 3 4:28PM ; [facility] Upper respiratory infection SICK VISIT with HAJA REGALADO M.D. 10/21/2012 Last Documented On 3 9:51AM ; [facility] ADHD, predominantly inattentive type ADHD CK-UP with OBED REGALADO M.D. 07/22/2012 Last Documented On 3 1:19PM ; [facility] Migraine headache ADHD CK-UP with OBED REGALADO M.D. 07/22/2012 Last Documented On 3 1:19PM ; [facility] Allergic rhinitis SICK VISIT with BETHANY RODRÍGUEZ PA-C 05/26/2012 Last Documented On 3 3:11PM ; [facility] Abdominal pain--RLQ SICK VISIT with BETHANY PERSAUDC 02/02/2012 Last Documented On 2 2:02PM ; [facility] Hyperlipidemia SICK VISIT with BETHANY JULIO PA-C 02/02/2012 Last Documented On 2 2:02PM ; [facility] Obesity SICK VISIT with BETHANY JULIO PA-C 02/02/2012 Last Documented On 2 2:02PM ; [facility] ADHD, predominantly inattentive type GEN ERAL OFFICE VISIT with OBED REGALADO M.D. 09/16/2011 Last Documented On 2 3:54PM ; [facility] Hyperlipidemia GENERAL OFFICE VISIT with OBED REGALADO M.D. 09/16/2011 Last Documented On 2 3:54PM ; [facility] Otitis media in both ears SICK VISIT with HOLLY DEWITT PA-C 05/09/2011 Last Documented On 1 3:20PM ; [facility] Otitis externa of left ear SICK VISIT with OBED REGALADO M.D. 11/28/2010 Last Documented On 1 3:29PM ; [facility] Acute upper respiratory infection SICK VISIT wit attila WINN PA-C 07/29/2010 Last Documented On 1 3:14PM ; [facility] Disturbance in skin or paresthesia SICK VISIT wi th FREDDY Knowles TATUM MANZANO 07/29/2010 Last Documented On 1 3:14PM ; [facility] Otitis media of the left ear SICK VISIT with SHARON Knowles TATUM MANZANO 07/29/2010 Last Documented On 1 3:14PM ; [facility] Migraine headache WELL CHILD EXAM with OBDE MURPHY M.D. 06/20/2010 Last Documented On 1 4:23PM ; [facility] Headache syndromes SICK VISIT with OBED REGALADO M.D. 02/12/2010 Last Documented On 0 2:13PM ; [facility] Hyperlipidemia * PHONE CALL with OBED REGALADO M.D. 07/24/2009 Last Documented On 0 8:45AM ; [facility] Lice, Head GENERAL OFFICE VISIT with OBED REGALADO M.D. 03/15/2009 Last Documented On 9 4:33PM ; [facility] Obesity GENERAL OFFICE VISIT with OBED REGALADO M.D. 03/15/2009 Last Documented On 9 4:33PM ; [facility] Plantar warts GENERAL OFFICE VISIT with OBED REGALADO M.D. 03/15/2009 Last Documented On 9 4:33PM ; [facility] Instructions Includes: Instructions for all patient encounters Instructions to patient Intervention and counseling on cessation of tobacco use Last Documented On 4 11:27AM ; [facility] Lose weight Last Documented On 4 11:44AM ; [facility] Instructions for patient : B reast Self Exam discussed and technique reviewed Last Documented On 4 10:07AM ; [facility] Discussed Gardasil vaccinati on and recommend vaccination for HPV prevention. Handout given. Patient understands sexual transmission of high-risk HPV and the association with abnormal pap smear and cervical cancer. Recommend to decrease high risk behaviors such as: number or sexual partners and smoking; and to use barrier contraceptives Last Documented On 4 10:07AM ; [facility] Lose weight Last Documented On 3 2:13PM ; [facility] Lose weight Last Documented On 3 4:07PM ; [facility] Maintain a healthy diet Last Documented On 9 4:28PM ; [facility] Instructions for patient Last Documented On 8 3:25PM ; [facility] Instructions for patient Last Documented On 5 1:40PM ; [facility] Recommend diet and exercise at least 30 min three times per week Last Documented On 3 4:24PM ; [facility] Education and Decision Aids were provided during visit for: Discussed nutritional needs Last Documented On 9 4:28PM ; [facility] Discussed activities Last Documented On 9 4:28PM ; [facility] Medical Equipment - Implanted Devices Includes: Current and historical Devices No Medical Equipment Recorded Medications Includes: Current and historical Medications Past Medications on file Losartan Potassium 50 MG Oral Tablet 10/02/2023 - 03/30/2024 Provider: HAILEE SANCHES CONSTRUCTION COORDINATOR Diagnosis: Essential (prima ry) hypertension One tablet daily Last Documented On 10/02/2023 12:04PM By HAILEE SANCHES NP ; [facility] Omeprazole 20 MG Oral Capsule Delayed Release 10/02/2023 - 10/16/2023 Provider: HAILEE SANCHES CONSTRUCTION COORDINATOR Diagnosis: Gastro-esophagea l reflux disease without esophagitis One tablet daily Last Documented On 10/02/2023 11:57AM By HAILEE SANCHES NP ; [facility] Atorvastatin Calcium 20 MG Oral Tablet 10/02/2023 - 03/30/2024 Provider: HAILEE SANCHES CONSTRUCTION COORDINATOR Diagnosis: Hyperlipidemia, unspecified One tablet at bed time Last Documented On 10/02/2023 11:57AM By HAILEE SANCHES NP ; [facility] Lexapro 10 MG Oral Tablet 10/02/2023 - 03/30/2024 Provider: HAILEE SANCHES CONSTRUCTION COORDINATOR Diagnosis: Generalized anxi ety disorder One tablet daily Last Documented On 10/02/2023 11:57AM By HAILEE SANCHES NP ; [facility] Lexapro 10 MG Oral Tablet 04/03/2023 - 10/02/2023 Provider: HAILEE SANCHES CONSTRUCTION COORDINATOR Diagnosis: Generalized anxi ety disorder One tablet daily Last Documented On 10/02/2023 11:41AM By HAILEE SANCHES NP ; [facility] Atorvastatin Calcium 20 MG Oral Tablet 04/03/2023 - 10/02/2023 Provider: HAILEE RODRIGUEZP Diagnosis: Hyperlipidemia, unspecified One tablet at bed time Last Documented On 10/02/2023 11:43AM By HAILEE SANCHES CEMENT CAR DUMPER ; [facility] Losartan Potassium 25 MG Oral Tablet 04/03/2023 - 09/30/2023 Provider: HAILEE SANCHES CONSTRUCTION COORDINATOR Diagnosis: Essential (prima ry) hypertension One tablet daily Last Documented On 04/03/2023 2:19PM By HAILEE SANCHES CEMENT CAR DUMPER ; [facility] Losartan Potassium 25 MG Ora l Tablet 02/23/2023 - 10/02/2023 Provider: HAILEE SANCHES CONSTRUCTION COORDINATOR Diagnosis: Last Documented On 10/02/2023 11:55AM By HAILEE SANCHES NP ; [facility] Losartan Potassium 25 MG Oral Tablet 02/23/2023 - 04/03/2023 Provider: HAILEE SANCHES CONSTRUCTION COORDINATOR Diagnosis: Essential (prima ry) hypertension One tablet daily Last Documented On 04/03/2023 2:03PM By HAILEE SANCHES NP ; [facility] hydrOXYzine HCl 50 MG Oral Tablet 02/23/2023 - 03/25/2023 Provider: HAILEE SANCHES CONSTRUCTION COORDINATOR Diagnosis: Panic disorder [episodic paroxysmal anxiety] One tablet twice a day as ne eded for anxiety/panic attacks Last Documented On 02/23/2023 2:33PM By HAILEE SANCHES NP ; [facility] Lexapro 10 MG Oral Tablet 02/23/2023 - 04/03/2023 Provider: HAILEE SANCHES CONSTRUCTION COORDINATOR Diagnosis: Generalized anxi ety disorder One tablet daily Last Documented On 04/03/2023 2:03PM By HAILEE SANCHES NP ; [facility] Losartan Potassium 50 MG Oral Tablet 10/01/2022 - 02/23/2023 Provider: HAILEE SANCHES CONSTRUCTION COORDINATOR Diagnosis: Essential (prima ry) hypertension One tablet daily Last Documented On 02/23/2023 2:14PM By HAILEE SANCHES NP ; [facility] Lisinopril 30 MG Oral Tablet 09/17/2022 - 10/01/2022 Provider: RENATA MORENO CONSTRUCTION COORDINATOR- Diagnosis: Essential (prima ry) hypertension One tablet daily Last Documented On 10/01/2022 2:32PM By HAILEE SANCHES NP ; [facility] Atorvastatin Calcium 20 MG Oral Tablet 09/17/2022 - Provider: Diagnosis: Last Documented On 02/23/2023 1:50PM By MACK ALONZO ; [facility] Lisinopril 10 MG Oral Tablet 09/09/2022 - 09/09/2022 Crystal malikder: Diagnosis: Last Documented On 09/09/2022 3:34PM By HAILEE SANCHES NP ; [facility] SUMAtriptan Succinate 50 MG Oral Tablet 04/17/2020 - 10/14/2020 Provider: HAILEE NICOLE Diagnosis: Migraine with au ra, not intractable, w/o status migrainosus Take 1 tab at migraine onset , may repeat dose in 2 hours if needed Last Documented On 04/17/2020 2:53PM By HAILEE SANCHES NP ; [facility] Propranolol HCl ER 60 MG Oral Capsule Extended Release 24 Hour 01/24/2020 - 07/22/2020 Provider: HAILEE NICOLE Diagnosis: Migraine with au ra, not intractable, w/o status migrainosus One tablet daily Last Documented On 01/24/2020 4:20PM By HAILEE SANCHES NP ; [facility] Propranolol HCl ER 60 MG Oral Capsule Extended Release 24 Hour 11/21/2019 - 01/24/2020 Provider: HAILEE NICOLE Diagnosis: Migraine with au ra, not intractable, w/o status migrainosus One tablet daily Last Documented On 01/24/2020 4:19PM By HAILEE SANCHES NP ; [facility] SUMAtriptan Succinate 50 MG Oral Tablet 11/21/2019 - 04/17/2020 Provider: HAILEE NICOLE Diagnosis: Migraine with au ra, not intractable, w/o status migrainosus Take 1 tab at migraine onset , may repeat dose in 2 hours if needed Last Documented On 04/17/2020 2:40PM By HAILEE SANCHES NP ; [facility] Ibuprofen 600MG Oral Tablet 09/24/2017 - 09/29/2017 Provider: HAILEE NICOLE Diagnosis: Pain in right kn ee One tablet three times a day Last Documented On 09/24/2017 4:19PM By HAILEE SANCHES NP ; [facility] Simvastatin 10MG Oral Tablet 08/13/2017 - 07/07/2018 Provider: OBED REGALADO M.D. Diagnosis: Hyperlipidemia, unspecified One tablet daily Last Documented On 07/07/2018 3:09PM By Noemy Terrell MA ; [facility] Simvastatin 10MG Oral Tablet 06/29/2017 - 08/13/2017 Provider: OBED REGALADO M.D. Diagnosis: Hyperlipidemia, unspecified One tablet daily Last Documented On 08/13/2017 9:37AM By OBED REGALADO MD ; [facility] Benzonatate 100MG Oral Capsule 05/12/2017 - 05/17/2017 Provider: OBED REGALADO M.D. Diagnosis: Cough Give one capsule by mouth th rice daily as needed for cough; swallow whole Last Documented On 05/12/2017 11:37AM By BOED REGALADO MD ; [facility] ProAir HFA 108 (90 Base) MCG/ACT Aerosol Solution 05/06/2016 - 06/05/2016 Provider: ARMIDA WRIGHT PA-C Diagnosis: Wheezing 2 puffs four times a day as needed Last Documented On 6 10:52AM By ARMIDA STALLWORTH PA-C ; [facility] PredniSONE 20 MG Tablet 05/06/2016 - 05/11/2016 Provid er: ARMIDA STALLWORTH PA-C Diagnosis: Wheezing as directed 1 pill twice ino ly for 2 days then one pill daily for 3 days Last Documented On 6 10:52AM By ARMIDA STALLWORTH PA-C ; [facility] Azithromycin 250 MG Tablet 05/06/2016 - 06/05/2016 Pro vider: ARMIDA STALWLORTH PA-C Diagnosis: Cough 2 pills the first day then one daily Last Documented On 6 10:52AM By ARMIDA STALLWORTH PA-C ; [facility] Vyvanse 40 MG Capsule, conventional 08/16/2015 - 11/21/2019 Provider: OBED REGALADO M.D. Diagnosis: Attention-defici t hyperactivity disorder, unspecified type 1 capsule daily Last Documented On 11/21/2019 1:59PM By MACK ALONZO ; [facility] Topiramate 25 MG Tablet 08/16/2015 - 01/06/2017 Provider: OBED REGALADO M.D. Diagnosis: Migraine, unsp, not intractable, without status migrainosus One tablet daily Last Documented On 01/06/2017 9:58AM By HAILEE SANCHES CEMENT CAR DUMPER ; [facility] Amoxicillin 875 MG Tablet 08/13/2015 - 08/20/2015 Prov ider: OBED REGALADO M.D. Diagnosis: One tablet twice a day Last Documented On 08/13/2015 1:24PM By OBED REGALADO MD ; [facility] Cyproheptadine HCl 4 MG Tablet 07/17/2015 - 07/17/2015 Provider: OBED REGALADO M.D. Diagnosis: Migraine, unsp, not intractable, without status migrainosus Take two tablets by mouth twice daily Last Documented On 07/17/2015 10:08AM By OBED REGALADO MD ; [facility] Vyvanse 40 MG Capsule 07/17/2015 - 08/16/2015 Provider: OBED REGALADO M.D. Diagnosis: Attention-defici t hyperactivity disorder, unspecified type 1 capsule daily Last Documented On 08/16/2015 2:02PM By OBED REGALADO MD ; [facility] Topiramate 25 MG Tablet 07/17/2015 - 08/16/2015 Provider: OBED REGALADO M.D. Diagnosis: Migraine, unsp, not intractable, without status migrainosus One tablet daily Last Documented On 08/16/2015 2:02PM By OBED REGALADO MD ; [facility] Pseudoephedrine HCl 60 MG Tablet 05/15/2015 - 05/20/2015 Provider: OBED REGALADO M.D. Diagnosis: Acute upper respiratory infection, unspecified 1 every 6 hours as needed Last Documented On 05/15/2015 2:52PM By OBED REGALADO MD ; [facility] Benzonatate 100 MG Capsule, conventional 05/15/2015 - 05/20/2015 Provider: OBED Oneil Diagnosis: Cough Give one capsule by mouth th rice daily as needed for cough Last Documented On 05/15/2015 2:54PM By OBED REGALADO MD ; [facility] Pseudoephedrine HCl 60 MG Tablet 05/15/2015 - 01/06/2017 Provider: OBED REGALADO M.D. Diagnosis: Acute upper respiratory infection, unspecified 1 every 6 hours as needed Last Documented On 01/06/2017 9:58AM By HAILEE SANCHES CEMENT CAR DUMPER ; [facility] Benzonatate 100 MG Capsule, conventional 05/08/2015 - 05/15/2015 Provider: OBED Oneil Diagnosis: Cough Give one capsule by mouth th rice daily as needed for cough Last Documented On 05/15/2015 2:50PM By OBED REGALADO MD ; [facility] Vyvanse 40 MG Capsule 03/27/2015 - 07/17/2015 Provider: OBED REGALADO M.D. Diagnosis: Attention-defici t hyperactivity disorder, unspecified type 1 capsule daily Last Documented On 07/17/2015 9:01AM By OBED REGALADO MD ; [facility] Vyvanse 40 MG Capsule 01/24/2015 - 03/26/2015 Provider : OBED REGALADO M.D. Diagnosis: ATTN DEFIC NONHY PERACT 1 capsule daily Last Documented On 03/26/2015 1:33PM By OBED REGALADO MD ; [facility] Vyvanse 40 MG Capsule, conventional 11/07/2014 - 01/24/2015 Provider: OBED REGALADO M.D. Diagnosis: ATTN DEFIC NONHY PERACT 1 capsule daily Last Documented On 01/24/2015 3:34PM By OBED REGALADO MD ; [facility] Cheratussin AC 100-10 MG/5ML OR SYRP 04/28/2014 - 05/12/2014 Provider: YOLY PETTY PA-C Diagnosis: COUGH 1-2 tsp q 4 hrs prn cough Yarely's [place]. Last Documented On 4 1:55PM By YOLY PETTY PA-C ; [facility] ProAir HFA 108 (90 Base) MCG/ACT IN AERS 04/28/2014 - 05/28/2014 Provider: YOLY PETTY PA-C Diagnosis: COUGH 2 puffs q 4-6 hrs PRN Last Documented On 4 1:58PM By YOLY PETTY PA-C ; [facility] Zithromax Z-Robin 250 MG OR TABS 04/24/2014 - 04/29/2014 Provider: YOLY PETTY PA-C Diagnosis: PNEUMONIA, ORGAN ISM NOS Take as directed. Last Documented On 4 11:22AM By YOLY PETTY PA-C ; [facility] Simvastatin 10 MG OR TABS 11/29/2013 - 01/06/2017 Provider: OBED REGALADO M.D. Diagnosis: HYPERLIPIDEMIA N EC/NOS Last Documented On 01/06/2017 9:58AM By HAILEE SANCHES NP ; [facility] raNITIdine HCl 150 MG OR TABS 11/15/2013 - 01/14/2014 Provider: NIA MCCOY PA-C Diagnosis: ESOPHAGEAL REFLU X 1/2 to 1 tablet daily Last Documented On 4 10:56AM By NIA MCCOY PA-C ; [facility] Vyvanse 30 MG OR CAPS 07/07/2013 - 01/06/2017 Provider : OBED REGALADO M.D. Diagnosis: ATTN DEFIC NONHY PERACT Last Documented On 01/06/2017 9:58AM By HAILEE SANCHES NP ; [facility] Vyvanse 30 MG OR CAPS 02/18/2013 - 07/07/2013 Provider : OBED REGALADO M.D. Diagnosis: ATTN DEFIC NONHY PERACT Last Documented On 07/07/2013 9:05AM By OBED REGALADO MD ; [facility] Clotrimazole 1% EX CREA 02/04/2013 - 03/06/2013 Provid er: BETHANY JULIO PA-C Diagnosis: apply BID x 2 weeks Last Documented On 3 9:24AM By BETHANY JULIO PA-C ; [facility] Vyvanse 30 MG OR CAPS 12/28/2012 - 02/18/2013 Provider : OBED REGALADO M.D. Diagnosis: ATTN DEFIC NONHY PERACT Last Documented On 02/18/2013 8:53AM By OBED REGALADO MD ; [facility] Vyvanse 30 MG OR CAPS 11/11/2012 - 12/28/2012 Provider : OBED REGALADO M.D. Diagnosis: ATTN DEFIC NONHY PERACT Last Documented On 12/28/2012 9:22AM By OBED REGALADO MD ; [facility] Cetirizine HCl 10 MG OR TABS 10/21/2012 - 01/06/2017 P rovider: OBED REGALADO M.D. Diagnosis: ACUTE URI NOS Last Documented On 01/06/2017 9:58AM By HAILEE SANCHES NP ; [facility] Vyvanse 30 MG OR CAPS 09/28/2012 - 11/11/2012 Provider : OBED REGALADO M.D. Diagnosis: ATTN DEFIC NONHY PERACT Last Documented On 11/11/2012 9:46AM By OBED REGALADO MD ; [facility] Vyvanse 30 MG OR CAPS 09/03/2012 - 09/28/2012 Provider: BETHANY JULIO PA-C Diagnosis: ATTN DEFIC NONHY PERACT Last Documented On 09/28/2012 5:02PM By OBED REGALADO MD ; [facility] Vyvanse 30 MG OR CAPS 07/22/2012 - 09/03/2012 Provider : OBED REGALADO M.D. Diagnosis: ATTN DEFIC NONHY PERACT Last Documented On 11:54AM By BETHANY JULIO PA-C ; [facility] Vyvanse 30 MG OR CAPS 06/29/2012 - 07/22/2012 Provider : OBED REGALADO M.D. Diagnosis: ATTN DEFIC NONHY PERACT Last Documented On 07/22/2012 3:47PM By OBED REGALADO MD ; [facility] Vyvanse 30 MG OR CAPS 05/06/2012 - 06/29/2012 Provider : OBED REGALADO M.D. Diagnosis: ATTN DEFIC NONHY PERACT Last Documented On 06/29/2012 9:52AM By OBED REGALADO MD ; [facility] Vyvanse 30 MG OR CAPS 04/01/2012 - 05/06/2012 Provider : OBED REGALADO M.D. Diagnosis: ATTN DEFIC NONHY PERACT Last Documented On 05/06/2012 1:10PM By OBED REGALADO MD ; [facility] Vyvanse 30 MG OR CAPS 01/12/2012 - 04/01/2012 Provider : OBED REGALADO M.D. Diagnosis: ATTN DEFIC NONHY PERACT Last Documented On 04/01/2012 1:40PM By OBED REGALADO MD ; [facility] Vyvanse 30 MG OR CAPS 12/15/2011 - 01/12/2012 Provider : OBED REGALADO M.D. Diagnosis: ATTN DEFIC NONHY PERACT Last Documented On 01/12/2012 12:32PM By OBED REGALADO MD ; [facility] Vyvanse 30 MG OR CAPS 11/17/2011 - 12/15/2011 Provider : OBED REGALADO M.D. Diagnosis: ATTN DEFIC NONHY PERACT Last Documented On 12/15/2011 9:07AM By OBED REGALADO MD ; [facility] Vyvanse 30 MG OR CAPS 10/15/2011 - 10/15/2011 Provider : OBED REGALADO M.D. Diagnosis: ATTN DEFIC NONHY PERACT Last Documented On 2 10:46AM By BETHANY JULIO PA-C ; [facility] Vyvanse 30 MG OR CAPS 10/15/2011 - 11/17/2011 Provider: BETHANY JULIO PA-C Diagnosis: ATTN DEFIC NONHY PERACT Last Documented On 11/17/2011 10:19AM By OBED REGALADO MD ; [facility] Vyvanse 30 MG OR CAPS 09/16/2011 - 10/15/2011 Provider : OBED REGALADO M.D. Diagnosis: ATTN DEFIC NONHY PERACT Last Documented On 10/15/2011 8:48AM By OBED REGALADO MD ; [facility] Amoxicillin 500 MG OR CAPS 05/09/2011 - 05/19/2011 Provider: BETHANY JULIO PA-C Diagnosis: OTITIS MEDIA NOS Last Documented On 1 11:46AM By BETHANY JULIO PA-C ; [facility] Mrizozey-Uyvthbdzw-VC [id number] OT SOLN 11/29/2010 - 12/06/2010 Provider: OBED REGALADO M.D. Diagnosis: INFEC OTITIS EXTERNA NOS Instill four drops to affect ed ear(s) four times daily for seven days. Last Documented On 11/29/2010 12:38PM By OBED REGALADO MD ; [facility] Ciprodex 0.3-0.1% OT SUSP 11/28/2010 - 12/05/2010 Provider: OBED Oneil Diagnosis: INFEC OTITIS EXT DAWNA NOS Instill four drops in affect ed ear(s) twice daily for seven days. Last Documented On 11/28/2010 3:24PM By OBED REGALADO MD ; [facility] Amoxicillin 500 MG OR CAPS 07/29/2010 - 05/09/2011 Provider: FREDDY CDEEÑO CH, PA-C Diagnosis: OTITIS MEDIA NOS Last Documented On 1 11:46AM By BETHANY JULIO PA-C ; [facility] Amitriptyline HCl 10 MG OR TABS 06/20/2010 - 08/19/2010 Provider: OBED REGALADO M.D. Diagnosis: MIGRNE UNSP WO N TRC MGRN Give one-half tab by mouth e very night at bedtime Last Documented On 06/20/2010 3:44PM By OBED REGALADO MD ; [facility] Nix Creme Rinse 1% EX LIQD 03/15/2009 - 03/17/2009 Provider: OBED Oneil Diagnosis: Pediculus Capiti s After washing and drying juan r, saturate hair and scalp with creme rinse. Leave on head for 10-20 minutes, and then rinse. Last Documented On 03/15/2009 9:35AM By OBED REGALADO MD ; [facility] Medications Administered Includes: Administered Medications in patient's chart No Administered Medications Recorded Vital Signs Includes: Vital Signs from 06/06/2023 through 06/06/2024 Vital Name 10/02/2023 11:10A Blood Pressure Sitting (mmHg) 134/88 Pulse Rate-Sitting (bpm) 100 Respiration Rate (breaths/min) 18 Height (in) 66 Weight (lb) 263 Body Mass Index 42.4 Body Surface Area 2.2 Last Documented: On 10/02/2023 11:23A M ; [facility] Results Includes: Results from 06/06/2023 through 06/06/2024 CBC WITH DIFF [facility] La boratory Ordered by HAILEE Mejia CEMENT CAR DUMPER on 10/13/2023 [address] [facility], [place], [address] Collected: 10/13/2023 Report ed: 10/13/2023 11:52 tel: Last Documented On 4 3:04PM ; [facility] Reviewed by HAILEE RODRIGUEZP on 10/21/2023; All test results are final unless otherwise noted. ALC 1.9 None Last Documented On 4 10:18PM ; [facility] Note: Responsible Observer: (TE) ANC 4.6 None Last Documented On 4 10:18PM ; [facility] Note: Responsible Observer: (TE) BASO# 0.03 th/uL (0.00 - 0.20) None Last Documented On 4 10:18PM ; [facility] Note: Responsible Observer: (TE) BASO% 0.4 % (0.0 - 2.0) None Last Documented On 4 10:18PM ; [facility] Note: Responsible Observer: (TE) CBC WITH DIFF See Note None Last Documented On 4 10:18PM ; [facility] Note: CBC (COMPLETE BLOOD COUNT)Responsi ble Observer: (TE) DIFF (Y/N) NO None Last Documented On 4 10:18PM ; [facility] Note: Responsible Observer: (TE) EOS# 0.13 th/uL (0.00 - 0.45) None Last Documented On 4 10:18PM ; [facility] Note: Responsible Observer: (TE) EOS% 1.8 % (0.0 - 9.0) None Last Documented On 4 10:18PM ; [facility] Note: Responsible Observer: (TE) HCT 43.4 % (38.0 - 47.0) None Last Documented On 4 10:18PM ; [facility] Note: Responsible Observer: (TE) HGB 14.9 g/dL (12.0 - 16.0) None Last Documented On 4 10:18PM ; [facility] Note: Responsible Observer: (TE) IG# 0.01 th/ul (0.00 - 0.10) None Last Documented On 4 10:18PM ; [facility] Note: Responsible Observer: (TE) IG% 0.1 % (0.0 - 0.5) None Last Documented On 4 10:18PM ; [facility] Note: Responsible Observer: (TE) LYMPH# 1.94 th/uL (1.00 - 4.80) None Last Documented On 4 10:18PM ; [facility] Note: Responsible Observer: (TE) LYMPH% 26.9 % (14.0 - 45.0) None Last Documented On 4 10:18PM ; [facility] Note: Responsible Observer: (TE) MCH 27.6 pg (25.0 - 35.0) None Last Documented On 4 10:18PM ; [facility] Note: Responsible Observer: (TE) MCHC 34.3 g/dL (31.0 - 36.0) None Last Documented On 4 10:18PM ; [facility] Note: Responsible Observer: (TE) MCV 80.5 fl (80.0 - 100) None Last Documented On 4 10:18PM ; [facility] Note: Responsible Observer: (TE) MONO# 0.47 th/uL (0.00 - 0.80) None Last Documented On 4 10:18PM ; [facility] Note: Responsible Observer: (TE) MONO% 6.5 % (1.0 - 10.0) None Last Documented On 4 10:18PM ; [facility] Note: Responsible Observer: (TE) MPV 9.2 fl (6.0 - 11.0) None Last Documented On 4 10:18PM ; [facility] Note: Responsible Observer: (TE) NEUT# 4.64 th/uL None Last Documented On 4 10:18PM ; [facility] Note: Responsible Observer: (TE) NEUT% 64.3 % (45.0 - 76.0) None Last Documented On 4 10:18PM ; [facility] Note: Responsible Observer: (TE) NRBC% 0.0 % (0.0 - 0.0) None Last Documented On 4 10:18PM ; [facility] Note: Responsible Observer: (TE) PLT 293 th/uL (150 - 400) None Last Documented On 4 10:18PM ; [facility] Note: Responsible Observer: (TE) RBC 5.39 mil/uL (4.50 - 5.90) None Last Documented On 4 10:18PM ; [facility] Note: Responsible Observer: (TE) RDW 12.2 % (11.0 - 16.0) None Last Documented On 4 10:18PM ; [facility] Note: Responsible Observer: (TE) WBC 7.2 th/uL (4.5 - 11.0) None Last Documented On 4 10:18PM ; [facility] Note: Responsible Observer: (TE) CMP [facility] La boratory Ordered by HAILEE Mejia CEMENT CAR DUMPER on 10/13/2023 [address] [facility], [place], [address] Collected: 10/13/2023 Report ed: 10/13/2023 12:25 tel:[phone] Last Documented On 4 3:04PM ; [facility] Reviewed by HAILEE SANCHES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
--- OUTSIDE RECORDS SUMMARY | 2024-06-06 02:24 | XMS_ITS | Clinical Summary ---
Author Organization [facility] Address [address] [place] [address] Phone Care Team Providers Care Licensed Home Inspector Name Role Phone KATINA ARELLANO MD Primary Care Provider [phone] Reason for Visit and Chief Complaint * PHONE CALL Problems Includes: Problems addressed during this encounter and other active Problems All Visits Onset Date Resolved Date Provider Condition S tatus Vitamin B12 Deficiency 10/02/2023 CHERI CASTANEDA EZ [facility] Active Last Documented On 4 11:38AM ; [facility] Hypertension Systemic 09/09/2022 CHERI CAMARGO Z [facility] SI[facility]ER Active Last Documented On 3 3:32PM ; [facility] Hyperlipidemia 01/27/2018 CHERI SANCHES H[facility] A ctive Last Documented On 8 10:44AM ; [facility] Generalized Anxiety Disorder 02/23/2015 CHERI SANCHES H[facility]ER Active Last Documented On 3 2:07PM ; [facility] 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 09/09/2012 CHERI SANCHES H[facility] Active Last Documented On 3 3:28PM ; [facility] Plan of Treatment No Plan of Treatment Recorded Assessments Includes: Assessments from this encounter No Assessments Recorded Medical Equipment - Implanted Devices Includes: Current Devices No Medical Equipment Recorded Medications Administered Includes: Administered Medications from this encounter No Administered Medications Recorded Results Includes: Results discussed during this encounter No Results Recorded For Specified Dates History of Present Illness Includes: History of Present Illness from this encounter No History of Present Illness Recorded Social History No Social History Recorded - Smoking Status Unknown Medical History Includes: Medical History addressed during this encounter No Medical History Recorded Family History Includes: Family History addressed during this encounter No Family History Recorded Review of Systems Includes: Review of Systems from this encounter No Review of Systems Recorded Mental Status Includes: Mental Status from this encounter No Mental Status Recorded Functional Status Includes: Functional Status from this encounter No Functional Status Recorded Physical Exam Includes: Physical Exam from this encounter No Physical Exam Recorded Allergies Includes: Active Allergies Substance Type Reaction Onset Date Resolved Date Statu s Lisinopril Allergy Cough 10/01/2022 Active Last Documented On 4 11:18AM ; [facility] Encounters Encounter Provider Location Date Check-In Time Check-Out Time Diagnosis * PHONE CALL BRIA TORRES MD [facility] 4 8:01AM 11:59PM Insurance Includes: Active Insurance Policies Plan Name Member ID Group # Subscriber Relationship Effect joann Dates 1 - [facility] [id number] YASEMIN CHIO Self Clinical Notes Includes: Clinical Notes from this encounter * Progress note Date Encounter Last Documented by 07/03/2023 * PHONE CALL Last documented on 07/03/2023; 8:17 AM, BRIA TORRES MD; [facility] Chief Complaint Phone Call - Chief Concern: [...]
--- OUTSIDE RECORDS SUMMARY | 2024-06-06 02:24 | XMS_ITS | Continuity of Care Document ---
Author Organization [facility] Address [address] [place] [address] Phone Care Team Providers Care Industrial Sweeper Cleaner Name Role Phone Tony Herrmann MD Unavailable [...] Diagnoses Date Provider Providers Copied on Encounter [facility], [address] [place] [address], [facility], [phone] [facility] No Information 7 Alize Jimenez. [address] [place] [address], [facility], [place]. tel:[phone] PREV VISIT, NEW, AGE 12-17 [facility], [address] [place] [address], [facility], [phone] [facility] PHYSICAL (chief complaint)S PORTS PHYSICAL (chief complaint) Encounter for exam for admission to educational institution 6 Roxann Martin. [address] [place] [address], [place]. tel:[phone] Family History Family Member Type Diagnosis Age At Onset No Information Payers Payer name Insurance type Covered alliance party ID Authoriza tion(s) No Information Social [...]
--- OUTSIDE RECORDS SUMMARY | 2024-06-06 02:24 | XMS_ITS ---
Care Plan - [facility] Created on: June 06, 2024 YASEMIN CHOI : 2000 Sex: Female Author Organization [facility] Address [address] [place] [address] Phone Care Team Providers Care Grinder Lap Name Role Phone KATINA ARELLANO MD Primary Care Provider [phone]
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
--- OUTSIDE RECORDS SUMMARY | 2024-06-06 02:24 | XMS_ITS | Clinical Summary ---
Author Organization [facility] Address [address] [place] [address] Phone Care Team Providers Care Mixing Machine Attendant Name Role Phone KATINA ARELLANO MD Primary Care Provider [phone] Reason for Visit and Chief Complaint * PHONE CALL Problems Includes: Problems addressed during this encounter and other active Problems All Visits Onset Date Resolved Date Provider Condition S tatus Vitamin B12 Deficiency 10/02/2023 CHERI CASTANEDA EZ POCKET BUILDER Active Last Documented On 4 11:38AM ; [facility] Hypertension Systemic 09/09/2022 CHERI CAMARGO Z POCKET BUILDER Active Last Documented On 3 3:32PM ; [facility] Hyperlipidemia 01/27/2018 CHERI SANCHES POCKET BUILDER A ctive Last Documented On 8 10:44AM ; [facility] Generalized Anxiety Disorder 02/23/2015 CHERI SANCHES POCKET BUILDER Active Last Documented On 3 2:07PM ; [facility] 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 09/09/2012 CHERI SANCHES POCKET BUILDER Active Last Documented On 3 3:28PM ; [facility] Plan of Treatment No Plan of Treatment [...] Active Last Documented On 4 11:18AM ; [facility] Encounters Encounter Provider Location Date Check-In Time Check-Out Time Diagnosis * PHONE CALL CHERI NICOLE 03/27/2023 2:57PM 11:59PM Insurance Includes: Active Insurance Policies Plan Name Member ID Group # Subscriber Relationship Effect joann Dates 1 - [facility] [id number] YASEMIN Adamson Clinical Notes Includes: Clinical Notes from this encounter * Progress note Date Encounter Last Documented by 03/27/2023 * PHONE CALL Last documented on 03/27/2023; 3:09 PM, CHERI NICOLE; [facility] Chief Complaint Phone Call - Chief Concern: Reason for call: patient called and asked about her lab results, she had to move her appt out a week and wanted to make sure they were ok pt phone # for return call: Date/Initials: Plan StartCited - Other PHY ORDER/COMMENT there is nothing emergent. We will discuss in detail at appt EndCited
--- OUTSIDE RECORDS SUMMARY | 2024-06-06 02:24 | XMS_ITS | Clinical Summary ---
Author Organization [facility] Address [address] [place] [address] Phone Care Team Providers Care Support Engineer Name Role Phone KATINA ARELLANO MD Primary Care Provider [phone] Reason for Visit and Chief Complaint The Chief Complaint is: Go over labs Problems Includes: Problems addressed during this encounter and other active Problems Current Visit Onset Date Resolved Date Provider Conditio n Status Vitamin B12 Deficiency 10/02/2023 CHERI SURESH REWORK MACHINE OPERATOR Active Last Documented On 4 11:38AM ; [facility] Hypertension Systemic 09/09/2022 CHERI CAMARGO Z REWORK MACHINE OPERATOR Active Last Documented On 3 3:32PM ; [facility] Hyperlipidemia 01/27/2018 CHERI SANCHES REWORK MACHINE OPERATOR A ctive Last Documented On 8 10:44AM ; [facility] Generalized Anxiety Disorder 02/23/2015 CHERI SANCHES REWORK MACHINE OPERATOR Active Last Documented On 3 2:07PM ; [facility] Past Visits Onset Date Resolved Date Provider Condition Status 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 09/09/2012 CHERI SANCHES REWORK MACHINE OPERATOR Active Last Documented On 3 3:28PM ; [facility] Plan of Treatment - Weight loss diet - Last Documented On 10/02/2023 11:58AM ; [facility] - Return to the clinic if condition worsens or new symptoms arise - Last Documented On 10/02/2023 11:58AM ; [facility] Follow up: In 6 months or as needed Labs before appt lipid, cmp, cbc, vit b12/folic acid WE will call with current lab results Increased losartan dose Restarted atorvastatin Put in new referral for counselor. Will start on omeprazole for 2 weeks. Follow up if acid reflux symptoms do not resolve or come right back and will consider referral to GI. - Last Documented On 10/02/2023 11:58AM ; [facility] Referrals To Diagnosis Counselor Generalized anxi ety disorder Note: [facility] Last Documented On 10:59AM ; [facility] Instructions to patient Intervention and counseling on cessation of tobacco use Last Documented On 11:27AM ; [facility] Lose weight Last Documented On 11:44AM ; [facility] Assessments Includes: Assessments from this encounter Findings - [Z00.01 - Encounter for general adult medical examination with abnormal findings] Routine adult history and physical (18-64 yrs) with abnormal findings - Last Documented On 10/02/2023 11:58AM ; [facility] - [I10 - Essential (primary) hypertension] Systemic hypertension - Last Documented On 10/02/2023 11:58AM ; [facility] - [K21.9 - Gastro-esophageal reflux disease without esophagitis] Esophageal reflux without esophagitis - Last Documented On 10/02/2023 11:58AM ; [facility] - [E78.5 - Hyperlipidemia, unspecified] Hyperlipidemia - Last Documented On 10/02/2023 11:58AM ; [facility] - [E53.8 - Deficiency of other specified B group vitamins] Vitamin B12 deficiency - Last Documented On 10/02/2023 11:58AM ; [facility] - [F41.1 - Generalized anxiety disorder] Generalized anxiety disorder - Last Documented On 10/02/2023 11:58AM ; [facility] Instructions Includes: Instructions from this encounter Instructions to patient Intervention and counseling on cessation of tobacco use Last Documented On 11:27AM ; [facility] Lose weight Last Documented On 11:44AM ; [facility] Medical Equipment - Implanted Devices Includes: Current Devices No Medical Equipment Recorded Medications Includes: Medications discussed during this encounter and other current Medications Discontinued / Stopped on this date CHERI RODRIGUEZP on 02/23/2023 Losartan Potassium 25 MG Oral Tablet Prov ider: CHERI NICOLE Diagnosis: Last Documented On 10/02/2023 11:55AM By CHERI SANCHES NP ; [facility] New / Renewed during this visit CHERI NICOLE on 10/02/2023 Losartan Potassium 50 MG Oral Tablet Provider: CHERI NICOLE 90 day supply: 90 tablet, 1 refills Diagnosis: Essential (primary) hypertension One tablet daily Pharmacy: [facility] [address], [id number] - Last Documented On 10/02/2023 12:04PM By CHERI SANCHES NP ; [facility] Omeprazole 20 MG Oral Capsule Delayed Release Provider: CHERI NICOLE 14 day supply: 14 capsule, 0 refills Diagnosis: Gastro-esophageal reflux disease without esophagitis One tablet daily Pharmacy: [facility] [address], [id number] - Last Documented On 10/02/2023 11:57AM By CHERI SANCHES NP ; [facility] Atorvastatin Calcium 20 MG Oral Tablet Provider: CHERI NICOLE 90 day supply: 90 tablet, 1 refills Diagnosis: Hyperlipidemia, unspecified One tablet at bed time Pharmacy: [facility] [address], [id number] - Last Documented On 10/02/2023 11:57AM By CHERI SANCHES NP ; [facility] Lexapro 10 MG Oral Tablet Provider: RANGEL NICOLE 90 day supply: 90 tablet, 1 refills Diagnosis: Generalized anxiety disorder One tablet daily Pharmacy: [facility] [address], [id number] - Last Documented On 10/02/2023 11:57AM By CHERI SANCHES NP ; [facility] Medications Administered Includes: Administered Medications from this encounter No Administered Medications Recorded Vital Signs Includes: Vital Signs from this encounter Vital Name 10/02/2023 11:10A Blood Pressure Sitting (mmHg) 134/88 Pulse Rate-Sitting (bpm) 100 Respiration Rate (breaths/min) 18 Height (in) 66 Weight (lb) 263 Body Mass Index 42.4 Body Surface Area 2.2 Last Documented: On 10/02/2023 11:23A M ; [facility] Results Includes: Results discussed during this encounter No Results Recorded For Specified Dates History of Present Illness Includes: History of Present Illness from this encounter JULIETH CHOI is a 23 year old female. [...] a new referral to counselor. 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 4000F Last Documented On 4 11:27AM ; [facility] use of tobacco assessment performed 1000F Last Documented On 4 11:27AM ; [facility] standardized depression screening: negative for symptoms 3351F Last Documented On 4 11:54AM ; [facility] review of medications documented 1160F Last Documented On 4 11:27AM ; [facility] assessment of suicide risk performed Last Documented On 4 11:54AM ; [facility] screening for adult depression: impressi on and score four Last Documented On 4 11:54AM ; [facility] Medical History Includes: Medical History addressed during this encounter No Medical History Recorded Family History Includes: Family History addressed during this encounter No Family History Recorded Review of Systems Includes: Review of Systems from this encounter Systemic: Not feeling poorly (malaise). No fever. [...] Active Last Documented On 4 11:18AM ; [facility] Encounters Encounter Provider Location Date Check-In Time Check-Out Time Diagnosis ANNUAL PHYSICAL EXAM CHERI NICOLE [facility] 10/02/19 24 11:00AM 11:54AM Hyperlipidemi a,Hypertensio n Systemic,Gene ralized Anxiety Disorder,Michelle min B12 Deficiency,Es ophageal Reflux Without Esophagitis,R outine History & Physical Adult with Abnormal Findings Insurance Includes: Active Insurance Policies Plan Name Member ID Group # Subscriber Relationship Effect joann Dates 1 - [facility] [id number] YASEMIN CHOI Self Clinical Notes Includes: Clinical Notes from this encounter * Progress note Date Encounter Last Documented by 10/02/2023 ANNUAL PHYSICAL EXAM Last docume nted on 10/02/2023; 11:58 AM, CHERI NICOLE; [facility] Active Problems & Conditions - [...] - Generalized anxiety disorder Referral: Counselor Instructions: [facility] Lexapro 10 MG tablet One tablet daily, [...]
== END 2024-05-30 17:15 | disposition home or self-care (01) ==
PROVIDERS: Emergency Provider Emergency Medicine
DX: R10.13 Epigastric pain (principal); I10 Essential (primary) hypertension; N39.0 Urinary tract infection, site not specified
CPT/HCPCS: 36415; 71046; 74177; 80053; 81001; 81025; 83690; 84484; 85025; 85380; 85610; 85730; 87086; 87186; 93005; 96374; 96375; 99284; A9270; J2405; J3010; Q9967